=== PATIENT | female | born 1985 | race Caucasian/White ===

== ENCOUNTER 2019-08-22 12:15 | Inpatient (IN) | payer OTHER ==
[2019-08-22] MEDS ORDERED: STADOL IV PRN ×2 (13:18→14:00)
[2019-08-22] MEDS ORDERED: BRETHINE SUB-Q PRN (13:33)
[2019-08-22] MEDS ORDERED: PHENERGAN PR PRN (13:33)
[2019-08-22] MEDS ORDERED: BRETHINE IVP PRN (13:33)
--- NOTE | 2019-08-22 13:33 | History and Physical Report ---
History of Present Illness Date of examination: 08/22/19 Date of admission: 08/22/19 Chief complaint: Contractions History of present illness: 34yo at 38+2/7 weeks by LNMP 11/26/18 in labor Previous c/sectionx1, desires TOLAC Previous c/sectionx1 for FTP at 40 weeks in [facility] 09/03/19 labs: A+/antibody screen negative HB 11.1/HCt 34.4 Pap NILM Rubella immune VRDL Negative Urine culture: negative HBsAg negative HIV NR GC/chlamydia: Negative MSAFP: patient presented too late for care GCT 78 GBS positive Past History Past Surgical History: cholecystectomy, section Family/Genetic History: none Social history: no significant social history - Obstetrical History : 2 Medications and Allergies Allergies Allergy/AdvReac Type Severity Reaction Status Date / Time No Known Allergies Allergy Unverified 08/22/19 13:05 Active Meds: Active Medications Butorphanol Tartrate (Stadol) 2 mg IV Q2H PRN PRN Reason: Labor Pain Lactated Ringer's (Lactated Ringers) 1,000 mls @ 125 mls/hr IV DIRECT HENRIQUE Review of Systems All systems: negative (contractions, leaking of fluid) - Vital Signs Vital signs: Vital Signs Temp Pulse Resp BP Pulse Ox 97.8 F 63 16 134/84 98 08/22/19 12:22 08/22/19 12:22 08/22/19 12:22 08/22/19 12:22 08/22/19 12:22 Temp Pulse Resp BP Pulse Ox 97.8 F 63 16 134/84 98 08/22/19 12:22 08/22/19 12:22 08/22/19 12:22 08/22/19 12:22 08/22/19 12:22 - Physical Exam Cardiovascular: Regular rate Lungs: Positive: Clear to auscultation Abdomen: Positive: normal appearance, soft Genitourinary (Female): Positive: normal external genitalia Cervix: Positive: other (2cm/80%/-2 Soft/midposition) Deep Tendon Reflex Grade: Normal +2 - Obstetrical FHR: category 1 Results All other labs normal. Assessment and Plan IUP at 38+2/7 weeks Previous c/sectionx1, desires TOLAC P: admission Informed consent GBS prophylaxis if indicated admission labs, early epidural CFM Maternal/ well being reassuring at bedside Rafa Payan MD
[2019-08-22] MEDS ORDERED: NalbUPHINE IV PRN (14:00)
[2019-08-22] MEDS ORDERED: MINERAL OIL PO PRN (14:00)
[2019-08-22] MEDS ORDERED: LACTATED RINGERS 1,000 ML IV SCH (14:00)
[2019-08-22] MEDS: LACTATED RINGERS 1,000 ML IV SCH ×2 (14:00→15:13)
[2019-08-22] MEDS ORDERED: XYLOCAINE 2% INFILTRATI NR (14:00)
[2019-08-22] MEDS ORDERED: PITOCin/NS 30 UNIT/500ML 30 UNITS/500 ML BAG IV SCH (14:00)
[2019-08-22] MEDS ORDERED: PITOCin/NS 20 UNIT/1000ML DRIP 20 UNITS/1,000 ML BAG IV SCH (14:00)
[2019-08-22] MEDS ORDERED: ZOFRAN IV PRN (14:00)
[2019-08-22 14:46] LABS: Hematocrit 39.7 % (30.3-42.9); Hemoglobin 12.9 gm/dl (10.1-14.3); Mean Corpuscular HGB Conc 33 % (30-34); Mean Corpuscular Volume 82 fl (79-97); Platelet Count 227 K/mm3 (140-440); Red Blood Count 4.84 M/mm3 (3.65-5.03); Red Cell Distribution Width 14.4 % (13.2-15.2)
[2019-08-22] MEDS ORDERED: NALOXONE IV PRN (15:18)
--- NOTE | 2019-08-22 15:18 | Anesthesia Consultation ---
Anesthesia Consult and Med Hx Date of service: 08/22/19 - Airway Anesthetic Teeth Evaluation: Good ROM Head & Neck: Adequate Mental/Hyoid Distance: Adequate Mallampati Class: Class II Intubation Access Assessment: Probably Good - Pulmonary Exam CTA: Yes - Cardiac Exam Cardiac Exam: RRR - Pre-Operative Health Status ASA Pre-Surgery Classification: ASA2 Proposed Anesthetic Plan: Epidural - Pulmonary Hx Asthma: No COPD: No Hx Pneumonia: No - Cardiovascular System Hx Hypertension: No - Central Nervous System Hx Seizures: No Hx Psychiatric Problems: No - Endocrine Hx Renal Disease: No Hx End Stage Renal Disease: No Hx Hypothyroidism: No Hx Hyperthyroidism: No - Hematic Hx Anemia: No Hx Sickle Cell Disease: No - Other Systems Hx Alcohol Use: No
[2019-08-22] MEDS ORDERED: AMPICILLIN/NS 2 GM/100 ML 2 GM/100 ML BAG IV ONE (15:20)
[2019-08-22] MEDS: fentaNYL-BUPIV 2 MCG/ML-0.125% 200 MCG/100 ML BAG EPIDURAL SCH ×2 (15:59→23:04)
[2019-08-22] MEDS: PITOCin/NS 30 UNIT/500ML 30 UNITS/500 ML BAG IV SCH ×4 (16:04→23:48)
--- NOTE | 2019-08-22 16:19 | Progress Note ---
Subjective - Subjective Date of service: 08/22/19 Principal diagnosis: Induction of labor Interval history: Patient is comfortable after epidural Cervix 3cm/90%/-2 BBOW FHT 140 baseline, moderate variability, +ve accelerations [place]:Q2-3 minutes Oxytocin at 2mu/min Plan to continue current management keep oxytocin at 2mu/min Rafa Payan MD Objective - Vital Signs Vital Signs: Vital Signs - 12hr 08/22/19 08/22/19 08/22/19 12:22 14:42 14:47 Temperature 97.8 F Pulse Rate 63 75 86 Respiratory 16 Rate Blood Pressure 139/93 Blood Pressure 134/84 [Left] O2 Sat by Pulse 98 100 100 Oximetry 08/22/19 08/22/19 08/22/19 14:52 14:57 15:02 Temperature Pulse Rate 85 78 79 Respiratory Rate Blood Pressure Blood Pressure [Left] O2 Sat by Pulse 99 99 100 Oximetry 08/22/19 08/22/19 08/22/19 15:07 15:12 15:17 Temperature Pulse Rate 84 86 75 Respiratory Rate Blood Pressure Blood Pressure [Left] O2 Sat by Pulse 100 100 100 Oximetry 08/22/19 08/22/19 08/22/19 15:22 15:27 15:32 Temperature Pulse Rate 77 79 86 Respiratory Rate Blood Pressure Blood Pressure [Left] O2 Sat by Pulse 100 100 100 Oximetry 08/22/19 08/22/19 08/22/19 15:36 15:37 15:38 Temperature Pulse Rate 78 84 84 Respiratory Rate Blood Pressure 138/78 137/80 Blood Pressure [Left] O2 Sat by Pulse 99 Oximetry 08/22/19 08/22/19 08/22/19 15:40 15:42 15:44 Temperature Pulse Rate 100 H 120 H 123 H Respiratory Rate Blood Pressure 139/75 134/77 129/76 Blood Pressure [Left] O2 Sat by Pulse 100 Oximetry 08/22/19 08/22/19 08/22/19 15:46 15:47 15:48 Temperature Pulse Rate 160 H 167 H 148 H Respiratory Rate Blood Pressure 120/70 128/74 Blood Pressure [Left] O2 Sat by Pulse 100 Oximetry 08/22/19 08/22/19 08/22/19 15:50 15:52 15:54 Temperature Pulse Rate 146 H 111 H 109 H Respiratory Rate Blood Pressure 126/73 134/82 124/64 Blood Pressure [Left] O2 Sat by Pulse 100 Oximetry 08/22/19 08/22/19 08/22/19 15:56 15:57 15:58 Temperature Pulse Rate 110 H 89 87 Respiratory Rate Blood Pressure 119/57 120/60 Blood Pressure [Left] O2 Sat by Pulse 100 Oximetry 08/22/19 08/22/19 08/22/19 16:00 16:02 16:04 Temperature Pulse Rate 102 H 94 H 79 Respiratory Rate Blood Pressure 115/59 118/56 143/64 Blood Pressure [Left] O2 Sat by Pulse 100 Oximetry 08/22/19 08/22/19 08/22/19 16:05 16:06 16:07 Temperature 97.8 F Pulse Rate 85 107 H Respiratory Rate Blood Pressure 123/61 Blood Pressure [Left] O2 Sat by Pulse 100 Oximetry 08/22/19 08/22/19 16:08 16:12 Temperature Pulse Rate 94 H 86 Respiratory Rate Blood Pressure 127/65 Blood Pressure [Left] O2 Sat by Pulse 100 Oximetry - Labs Labs: Abnormal Labs 08/22/19 14:20 MCH 27 L Laboratory Results - last 24 hr 08/22/19 08/22/19 14:20 14:20 WBC 10.5 RBC 4.84 Hgb 12.9 Hct 39.7 MCV 82 MCH 27 L MCHC 33 RDW 14.4 Plt Count 227 Blood Type A POSITIVE Antibody Screen Negative
--- NOTE | 2019-08-22 18:22 | Progress Note ---
Subjective - Subjective Date of service: 08/22/19 Principal diagnosis: Induction of labor Interval history: Patient is comfortable after epidural Cervix 5cm/100%/-2 AROM meconium/bloody fluid with no complication FHT 140 baseline, periods of minimal to moderate variability, +ve variable deceleration noted to soraya of 120bpm lasting <30 seconds with return to baseline IUPC placed Abdomen: soft, nontender, no rebound or guarding, no suprapubic or uterine anterior wall uterine tenderness on exam. Attempted payment of FSE but not successful. Excellent tracing on external monitor at this time. Continue oxytocin at 2mu/min Continuous monitoring Maternal/ well being reassuring overall. Kevon CH Objective - Vital Signs Vital Signs: Vital Signs - 12hr 08/22/19 08/22/19 08/22/19 12:22 14:42 14:47 Temperature 97.8 F Pulse Rate 63 75 86 Respiratory 16 Rate Blood Pressure 139/93 Blood Pressure 134/84 [Left] O2 Sat by Pulse 98 100 100 Oximetry 08/22/19 08/22/19 08/22/19 14:52 14:57 15:02 Temperature Pulse Rate 85 78 79 Respiratory Rate Blood Pressure Blood Pressure [Left] O2 Sat by Pulse 99 99 100 Oximetry 08/22/19 08/22/19 08/22/19 15:07 15:12 15:17 Temperature Pulse Rate 84 86 75 Respiratory Rate Blood Pressure Blood Pressure [Left] O2 Sat by Pulse 100 100 100 Oximetry 08/22/19 08/22/19 08/22/19 15:22 15:27 15:32 Temperature Pulse Rate 77 79 86 Respiratory Rate Blood Pressure Blood Pressure [Left] O2 Sat by Pulse 100 100 100 Oximetry 08/22/19 08/22/19 08/22/19 15:36 15:37 15:38 Temperature Pulse Rate 78 84 84 Respiratory Rate Blood Pressure 138/78 137/80 Blood Pressure [Left] O2 Sat by Pulse 99 Oximetry 08/22/19 08/22/19 08/22/19 15:40 15:42 15:44 Temperature Pulse Rate 100 H 120 H 123 H Respiratory Rate Blood Pressure 139/75 134/77 129/76 Blood Pressure [Left] O2 Sat by Pulse 100 Oximetry 08/22/19 08/22/19 08/22/19 15:46 15:47 15:48 Temperature Pulse Rate 160 H 167 H 148 H Respiratory Rate Blood Pressure 120/70 128/74 Blood Pressure [Left] O2 Sat by Pulse 100 Oximetry 08/22/19 08/22/19 08/22/19 15:50 15:52 15:54 Temperature Pulse Rate 146 H 111 H 109 H Respiratory Rate Blood Pressure 126/73 134/82 124/64 Blood Pressure [Left] O2 Sat by Pulse 100 Oximetry 08/22/19 08/22/19 08/22/19 15:56 15:57 15:58 Temperature Pulse Rate 110 H 89 87 Respiratory Rate Blood Pressure 119/57 120/60 Blood Pressure [Left] O2 Sat by Pulse 100 Oximetry 08/22/19 08/22/19 08/22/19 16:00 16:02 16:04 Temperature Pulse Rate 102 H 94 H 79 Respiratory Rate Blood Pressure 115/59 118/56 143/64 Blood Pressure [Left] O2 Sat by Pulse 100 Oximetry 08/22/19 08/22/19 08/22/19 16:05 16:06 16:07 Temperature 97.8 F Pulse Rate 85 107 H Respiratory Rate Blood Pressure 123/61 Blood Pressure [Left] O2 Sat by Pulse 100 Oximetry 08/22/19 08/22/19 08/22/19 16:08 16:12 16:17 Temperature Pulse Rate 94 H 86 82 Respiratory Rate Blood Pressure 127/65 Blood Pressure [Left] O2 Sat by Pulse 100 100 Oximetry 08/22/19 08/22/19 08/22/19 16:22 16:27 16:32 Temperature Pulse Rate 83 85 88 Respiratory Rate Blood Pressure Blood Pressure [Left] O2 Sat by Pulse 100 100 100 Oximetry 08/22/19 08/22/19 08/22/19 16:37 16:40 16:42 Temperature Pulse Rate 83 82 97 H Respiratory Rate Blood Pressure 131/66 Blood Pressure [Left] O2 Sat by Pulse 100 100 Oximetry 08/22/19 08/22/19 08/22/19 16:47 16:52 16:57 Temperature Pulse Rate 88 84 97 H Respiratory Rate Blood Pressure Blood Pressure [Left] O2 Sat by Pulse 100 100 100 Oximetry 08/22/19 08/22/19 08/22/19 17:02 17:07 17:09 Temperature Pulse Rate 82 102 H 81 Respiratory Rate Blood Pressure 138/63 Blood Pressure [Left] O2 Sat by Pulse 100 100 Oximetry 08/22/19 08/22/19 08/22/19 17:12 17:17 17:22 Temperature Pulse Rate 88 84 79 Respiratory Rate Blood Pressure Blood Pressure [Left] O2 Sat by Pulse 100 100 100 Oximetry 08/22/19 08/22/19 08/22/19 17:27 17:32 17:37 Temperature Pulse Rate 92 H 90 78 Respiratory Rate Blood Pressure Blood Pressure [Left] O2 Sat by Pulse 100 100 100 Oximetry 08/22/19 08/22/19 08/22/19 17:38 17:42 17:47 Temperature Pulse Rate 87 75 86 Respiratory Rate Blood Pressure 115/62 Blood Pressure [Left] O2 Sat by Pulse 100 100 Oximetry 08/22/19 08/22/19 08/22/19 17:52 17:57 18:02 Temperature Pulse Rate 83 89 105 H Respiratory Rate Blood Pressure Blood Pressure [Left] O2 Sat by Pulse 100 100 100 Oximetry 08/22/19 08/22/19 08/22/19 18:07 18:08 18:12 Temperature Pulse Rate 102 H 93 H 81 Respiratory Rate Blood Pressure 120/60 Blood Pressure [Left] O2 Sat by Pulse 100 100 Oximetry - Labs Labs: Abnormal Labs 08/22/19 14:20 MCH 27 L Laboratory Results - last 24 hr 08/22/19 08/22/19 14:20 14:20 WBC 10.5 RBC 4.84 Hgb 12.9 Hct 39.7 MCV 82 MCH 27 L MCHC 33 RDW 14.4 Plt Count 227 Blood Type A POSITIVE Antibody Screen Negative
--- NOTE | 2019-08-22 19:27 | Progress Note ---
Subjective - Subjective Date of service: 08/22/19 Principal diagnosis: Induction of labor Interval history: Patient is comfortable after epidural. Family in the room. I was called to the room for variable decelerations. Patient in left lateral decubitus with O2 per face mask Review of tracing reveals FHT 150basline, moderate variability, +ve accelerations. Two variables with a late component noted after AROM to a soraya of 140bpm lasting less than one minute with return to baseline. Continued moderate variability. Cervical exam: 5cm/100%/-1. Good descent with valsalva. Abdominal exam benign, pelvic adequate. Plan to increase oxytocin to 4mu/min and continue to monitor maternal/ well being reassuring overall. Rafa Jennings Objective - Vital Signs Vital Signs: Vital Signs - 12hr 08/22/19 08/22/19 08/22/19 12:22 14:42 14:47 Temperature 97.8 F Pulse Rate 63 75 86 Respiratory 16 Rate Blood Pressure 139/93 Blood Pressure 134/84 [Left] O2 Sat by Pulse 98 100 100 Oximetry 08/22/19 08/22/19 08/22/19 14:52 14:57 15:02 Temperature Pulse Rate 85 78 79 Respiratory Rate Blood Pressure Blood Pressure [Left] O2 Sat by Pulse 99 99 100 Oximetry 08/22/19 08/22/19 08/22/19 15:07 15:12 15:17 Temperature Pulse Rate 84 86 75 Respiratory Rate Blood Pressure Blood Pressure [Left] O2 Sat by Pulse 100 100 100 Oximetry 08/22/19 08/22/19 08/22/19 15:22 15:27 15:32 Temperature Pulse Rate 77 79 86 Respiratory Rate Blood Pressure Blood Pressure [Left] O2 Sat by Pulse 100 100 100 Oximetry 08/22/19 08/22/19 08/22/19 15:36 15:37 15:38 Temperature Pulse Rate 78 84 84 Respiratory Rate Blood Pressure 138/78 137/80 Blood Pressure [Left] O2 Sat by Pulse 99 Oximetry 08/22/19 08/22/19 08/22/19 15:40 15:42 15:44 Temperature Pulse Rate 100 H 120 H 123 H Respiratory Rate Blood Pressure 139/75 134/77 129/76 Blood Pressure [Left] O2 Sat by Pulse 100 Oximetry 10/21/19 10/21/19 10/21/19 15:46 15:47 15:48 Temperature Pulse Rate 160 H 167 H 148 H Respiratory Rate Blood Pressure 120/70 128/74 Blood Pressure [Left] O2 Sat by Pulse 100 Oximetry 08/22/19 08/22/19 08/22/19 15:50 15:52 15:54 Temperature Pulse Rate 146 H 111 H 109 H Respiratory Rate Blood Pressure 126/73 134/82 124/64 Blood Pressure [Left] O2 Sat by Pulse 100 Oximetry 08/22/19 08/22/19 08/22/19 15:56 15:57 15:58 Temperature Pulse Rate 110 H 89 87 Respiratory Rate Blood Pressure 119/57 120/60 Blood Pressure [Left] O2 Sat by Pulse 100 Oximetry 08/22/19 08/22/19 08/22/19 16:00 16:02 16:04 Temperature Pulse Rate 102 H 94 H 79 Respiratory Rate Blood Pressure 115/59 118/56 143/64 Blood Pressure [Left] O2 Sat by Pulse 100 Oximetry 08/22/19 08/22/19 08/22/19 16:05 16:06 16:07 Temperature 97.8 F Pulse Rate 85 107 H Respiratory Rate Blood Pressure 123/61 Blood Pressure [Left] O2 Sat by Pulse 100 Oximetry 08/22/19 08/22/19 08/22/19 16:08 16:12 16:17 Temperature Pulse Rate 94 H 86 82 Respiratory Rate Blood Pressure 127/65 Blood Pressure [Left] O2 Sat by Pulse 100 100 Oximetry 08/22/19 08/22/19 08/22/19 16:22 16:27 16:32 Temperature Pulse Rate 83 85 88 Respiratory Rate Blood Pressure Blood Pressure [Left] O2 Sat by Pulse 100 100 100 Oximetry 08/22/19 08/22/19 08/22/19 16:37 16:40 16:42 Temperature Pulse Rate 83 82 97 H Respiratory Rate Blood Pressure 131/66 Blood Pressure [Left] O2 Sat by Pulse 100 100 Oximetry 08/22/19 08/22/19 08/22/19 16:47 16:52 16:57 Temperature Pulse Rate 88 84 97 H Respiratory Rate Blood Pressure Blood Pressure [Left] O2 Sat by Pulse 100 100 100 Oximetry 08/22/19 08/22/19 08/22/19 17:02 17:07 17:09 Temperature Pulse Rate 82 102 H 81 Respiratory Rate Blood Pressure 138/63 Blood Pressure [Left] O2 Sat by Pulse 100 100 Oximetry 08/22/19 08/22/19 08/22/19 17:12 17:17 17:22 Temperature Pulse Rate 88 84 79 Respiratory Rate Blood Pressure Blood Pressure [Left] O2 Sat by Pulse 100 100 100 Oximetry 08/22/19 08/22/19 08/22/19 17:27 17:32 17:37 Temperature Pulse Rate 92 H 90 78 Respiratory Rate Blood Pressure Blood Pressure [Left] O2 Sat by Pulse 100 100 100 Oximetry 08/22/19 08/22/19 08/22/19 17:38 17:42 17:47 Temperature Pulse Rate 87 75 86 Respiratory Rate Blood Pressure 115/62 Blood Pressure [Left] O2 Sat by Pulse 100 100 Oximetry 08/22/19 08/22/19 08/22/19 17:52 17:57 18:02 Temperature Pulse Rate 83 89 105 H Respiratory Rate Blood Pressure Blood Pressure [Left] O2 Sat by Pulse 100 100 100 Oximetry 08/22/19 08/22/19 08/22/19 18:07 18:08 18:12 Temperature Pulse Rate 102 H 93 H 81 Respiratory Rate Blood Pressure 120/60 Blood Pressure [Left] O2 Sat by Pulse 100 100 Oximetry 08/22/19 08/22/19 08/22/19 18:17 18:22 18:27 Temperature Pulse Rate 76 90 92 H Respiratory Rate Blood Pressure Blood Pressure [Left] O2 Sat by Pulse 100 100 100 Oximetry 08/22/19 08/22/19 08/22/19 18:32 18:37 18:42 Temperature Pulse Rate 78 82 85 Respiratory Rate Blood Pressure Blood Pressure [Left] O2 Sat by Pulse 100 100 100 Oximetry 08/22/19 08/22/19 08/22/19 18:47 18:52 18:57 Temperature Pulse Rate 75 79 82 Respiratory Rate Blood Pressure Blood Pressure [Left] O2 Sat by Pulse 100 100 100 Oximetry 08/22/19 08/22/19 08/22/19 19:02 19:07 19:12 Temperature Pulse Rate 74 74 77 Respiratory Rate Blood Pressure Blood Pressure [Left] O2 Sat by Pulse 100 100 100 Oximetry 08/22/19 08/22/19 19:13 19:17 Temperature Pulse Rate 78 86 Respiratory Rate Blood Pressure 127/70 Blood Pressure [Left] O2 Sat by Pulse 100 Oximetry - Labs Labs: Abnormal Labs 08/22/19 14:20 MCH 27 L Laboratory Results - last 24 hr 08/22/19 08/22/19 14:20 14:20 WBC 10.5 RBC 4.84 Hgb 12.9 Hct 39.7 MCV 82 MCH 27 L MCHC 33 RDW 14.4 Plt Count 227 Blood Type A POSITIVE Antibody Screen Negative
[2019-08-22] MEDS: AMPICILLIN/NS 1 GM/50 ML 1 GM/50 ML BAG IV SCH ×2 (19:29→23:50)
--- NOTE | 2019-08-22 22:24 | Progress Note ---
Subjective - Subjective Date of service: 08/22/19 Principal diagnosis: Induction of labor Interval history: exam as per nursing staff cervical exam 7cm/100%/-1 FHT 150 baseline, moderate variability +ve accelerations [place]:Q1-2 minutes Continue current management tracing category 1 CFM Maternal/ well being reassuring overall. Rafa Jennings Objective - Vital Signs Vital Signs: Vital Signs - 12hr 08/22/19 08/22/19 08/22/19 12:22 14:42 14:47 Temperature 97.8 F Pulse Rate 63 75 86 Respiratory 16 Rate Blood Pressure 139/93 Blood Pressure 134/84 [Left] O2 Sat by Pulse 98 100 100 Oximetry 08/22/19 08/22/19 08/22/19 14:52 14:57 15:02 Temperature Pulse Rate 85 78 79 Respiratory Rate Blood Pressure Blood Pressure [Left] O2 Sat by Pulse 99 99 100 Oximetry 08/22/19 08/22/19 08/22/19 15:07 15:12 15:17 Temperature Pulse Rate 84 86 75 Respiratory Rate Blood Pressure Blood Pressure [Left] O2 Sat by Pulse 100 100 100 Oximetry 08/22/19 08/22/19 08/22/19 15:22 15:27 15:32 Temperature Pulse Rate 77 79 86 Respiratory Rate Blood Pressure Blood Pressure [Left] O2 Sat by Pulse 100 100 100 Oximetry 08/22/19 08/22/19 08/22/19 15:36 15:37 15:38 Temperature Pulse Rate 78 84 84 Respiratory Rate Blood Pressure 138/78 137/80 Blood Pressure [Left] O2 Sat by Pulse 99 Oximetry 08/22/19 08/22/19 08/22/19 15:40 15:42 15:44 Temperature Pulse Rate 100 H 120 H 123 H Respiratory Rate Blood Pressure 139/75 134/77 129/76 Blood Pressure [Left] O2 Sat by Pulse 100 Oximetry 08/22/19 08/22/19 08/22/19 15:46 15:47 15:48 Temperature Pulse Rate 160 H 167 H 148 H Respiratory Rate Blood Pressure 120/70 128/74 Blood Pressure [Left] O2 Sat by Pulse 100 Oximetry 08/22/19 08/22/19 08/22/19 15:50 15:52 15:54 Temperature Pulse Rate 146 H 111 H 109 H Respiratory Rate Blood Pressure 126/73 134/82 124/64 Blood Pressure [Left] O2 Sat by Pulse 100 Oximetry 08/22/19 08/22/19 08/22/19 15:56 15:57 15:58 Temperature Pulse Rate 110 H 89 87 Respiratory Rate Blood Pressure 119/57 120/60 Blood Pressure [Left] O2 Sat by Pulse 100 Oximetry 08/22/19 08/22/19 08/22/19 16:00 16:02 16:04 Temperature Pulse Rate 102 H 94 H 79 Respiratory Rate Blood Pressure 115/59 118/56 143/64 Blood Pressure [Left] O2 Sat by Pulse 100 Oximetry 08/22/19 08/22/19 08/22/19 16:05 16:06 16:07 Temperature 97.8 F Pulse Rate 85 107 H Respiratory Rate Blood Pressure 123/61 Blood Pressure [Left] O2 Sat by Pulse 100 Oximetry 08/22/19 08/22/19 08/22/19 16:08 16:12 16:17 Temperature Pulse Rate 94 H 86 82 Respiratory Rate Blood Pressure 127/65 Blood Pressure [Left] O2 Sat by Pulse 100 100 Oximetry 08/22/19 08/22/19 08/22/19 16:22 16:27 16:32 Temperature Pulse Rate 83 85 88 Respiratory Rate Blood Pressure Blood Pressure [Left] O2 Sat by Pulse 100 100 100 Oximetry 08/22/19 08/22/19 08/22/19 16:37 16:40 16:42 Temperature Pulse Rate 83 82 97 H Respiratory Rate Blood Pressure 131/66 Blood Pressure [Left] O2 Sat by Pulse 100 100 Oximetry 08/22/19 08/22/19 08/22/19 16:47 16:52 16:57 Temperature Pulse Rate 88 84 97 H Respiratory Rate Blood Pressure Blood Pressure [Left] O2 Sat by Pulse 100 100 100 Oximetry 08/22/19 08/22/19 08/22/19 17:02 17:07 17:09 Temperature Pulse Rate 82 102 H 81 Respiratory Rate Blood Pressure 138/63 Blood Pressure [Left] O2 Sat by Pulse 100 100 Oximetry 08/22/19 08/22/19 08/22/19 17:12 17:17 17:22 Temperature Pulse Rate 88 84 79 Respiratory Rate Blood Pressure Blood Pressure [Left] O2 Sat by Pulse 100 100 100 Oximetry 08/22/19 08/22/19 08/22/19 17:27 17:32 17:37 Temperature Pulse Rate 92 H 90 78 Respiratory Rate Blood Pressure Blood Pressure [Left] O2 Sat by Pulse 100 100 100 Oximetry 08/22/19 08/22/19 08/22/19 17:38 17:42 17:47 Temperature Pulse Rate 87 75 86 Respiratory Rate Blood Pressure 115/62 Blood Pressure [Left] O2 Sat by Pulse 100 100 Oximetry 08/22/19 08/22/19 08/22/19 17:52 17:57 18:02 Temperature Pulse Rate 83 89 105 H Respiratory Rate Blood Pressure Blood Pressure [Left] O2 Sat by Pulse 100 100 100 Oximetry 08/22/19 08/22/19 08/22/19 18:07 18:08 18:12 Temperature Pulse Rate 102 H 93 H 81 Respiratory Rate Blood Pressure 120/60 Blood Pressure [Left] O2 Sat by Pulse 100 100 Oximetry 08/22/19 08/22/19 08/22/19 18:17 18:22 18:27 Temperature Pulse Rate 76 90 92 H Respiratory Rate Blood Pressure Blood Pressure [Left] O2 Sat by Pulse 100 100 100 Oximetry 08/22/19 08/22/19 08/22/19 18:32 18:37 18:42 Temperature Pulse Rate 78 82 85 Respiratory Rate Blood Pressure Blood Pressure [Left] O2 Sat by Pulse 100 100 100 Oximetry 08/22/19 08/22/19 08/22/19 18:47 18:52 18:57 Temperature Pulse Rate 75 79 82 Respiratory Rate Blood Pressure Blood Pressure [Left] O2 Sat by Pulse 100 100 100 Oximetry 08/22/19 08/22/19 08/22/19 19:02 19:07 19:12 Temperature Pulse Rate 74 74 77 Respiratory Rate Blood Pressure Blood Pressure [Left] O2 Sat by Pulse 100 100 100 Oximetry 08/22/19 08/22/19 08/22/19 19:13 19:17 19:22 Temperature Pulse Rate 78 86 81 Respiratory Rate Blood Pressure 127/70 Blood Pressure [Left] O2 Sat by Pulse 100 100 Oximetry 08/22/19 08/22/19 08/22/19 19:27 19:32 19:37 Temperature Pulse Rate 83 87 94 H Respiratory Rate Blood Pressure Blood Pressure [Left] O2 Sat by Pulse 100 100 100 Oximetry 08/22/19 08/22/19 08/22/19 19:42 19:47 19:52 Temperature Pulse Rate 80 70 82 Respiratory Rate Blood Pressure Blood Pressure [Left] O2 Sat by Pulse 100 100 100 Oximetry 08/22/19 08/22/19 08/22/19 19:57 20:02 20:07 Temperature Pulse Rate 88 81 87 Respiratory Rate Blood Pressure Blood Pressure [Left] O2 Sat by Pulse 100 100 100 Oximetry 08/22/19 08/22/19 08/22/19 20:12 20:13 20:17 Temperature Pulse Rate 86 80 87 Respiratory Rate Blood Pressure 132/77 Blood Pressure [Left] O2 Sat by Pulse 100 100 Oximetry 08/22/19 08/22/19 08/22/19 20:22 20:27 20:32 Temperature Pulse Rate 91 H 88 87 Respiratory Rate Blood Pressure Blood Pressure [Left] O2 Sat by Pulse 100 100 100 Oximetry 08/22/19 08/22/19 08/22/19 20:37 20:42 20:47 Temperature Pulse Rate 87 84 88 Respiratory Rate Blood Pressure Blood Pressure [Left] O2 Sat by Pulse 100 100 100 Oximetry 08/22/19 08/22/19 08/22/19 20:52 20:57 21:02 Temperature Pulse Rate 89 90 91 H Respiratory Rate Blood Pressure Blood Pressure [Left] O2 Sat by Pulse 100 100 100 Oximetry 08/22/19 08/22/19 08/22/19 21:07 21:12 21:13 Temperature Pulse Rate 82 83 85 Respiratory Rate Blood Pressure 122/79 Blood Pressure [Left] O2 Sat by Pulse 100 100 Oximetry 08/22/19 08/22/19 08/22/19 21:17 21:22 21:27 Temperature Pulse Rate 91 H 82 81 Respiratory Rate Blood Pressure Blood Pressure [Left] O2 Sat by Pulse 100 100 100 Oximetry 08/22/19 08/22/19 08/22/19 21:32 21:37 21:42 Temperature Pulse Rate 86 85 100 H Respiratory Rate Blood Pressure Blood Pressure [Left] O2 Sat by Pulse 100 100 100 Oximetry 08/22/19 08/22/19 08/22/19 21:47 21:52 21:57 Temperature Pulse Rate 95 H 87 88 Respiratory Rate Blood Pressure Blood Pressure [Left] O2 Sat by Pulse 100 100 100 Oximetry 08/22/19 08/22/19 08/22/19 22:02 22:07 22:12 Temperature Pulse Rate 91 H 84 86 Respiratory Rate Blood Pressure 129/80 Blood Pressure [Left] O2 Sat by Pulse 100 100 100 Oximetry 08/22/19 08/22/19 22:17 22:22 Temperature Pulse Rate 89 85 Respiratory Rate Blood Pressure Blood Pressure [Left] O2 Sat by Pulse 100 100 Oximetry - Labs Labs: Abnormal Labs 08/22/19 14:20 MCH 27 L Laboratory Results - last 24 hr 08/22/19 08/22/19 14:20 14:20 WBC 10.5 RBC 4.84 Hgb 12.9 Hct 39.7 MCV 82 MCH 27 L MCHC 33 RDW 14.4 Plt Count 227 Blood Type A POSITIVE Antibody Screen Negative
--- NOTE | 2019-08-22 23:51 | Procedure Note ---
OB Delivery Note - Delivery Date of Delivery: 08/22/19 Surgeon: HODA LORENZANA Estimated blood loss: 200cc - Vaginal Delivery presentation: vertex Delivery position: OA Intrapartum events: none Delivery induction: none Delivery monitor: none Route of delivery: Delivery placenta: spontaneous Delivery cord: 3 umbilical vessels Episiotomy: none Delivery laceration: none Anesthesia: epidural Delivery comments: I was called to the room as patient was noted to be complete with BBOW. SROM clear fluid when placed in dorsal lithotomy position. She was placed in the dorsal lithotomy position and pushed to delivery a viable male with weight 2926gms and 8,9. Position was SANAZ. No nuchal cord. Anterior shoulder delivered atraumatically. Spontaneous cry at delivery. Baby was placed on maternal abdomen with delayed cord clamping. Inspection of the vaginal, cervix and perineum revealed no lacerations. The cord was clamped after 1 minute, cut and the intact placenta delivered spontaneously. All sponge, needle and instrument counts correctx2. EBL 200ml. Mom and baby stable to . Kevon CH - Infant A at 1 minute: 8 at 5 minutes: 9 Infant Gender: Male (2926gms.)
--- NOTE | 2019-08-23 00:12 | Progress Note ---
Subjective - Subjective Date of service: 08/23/19 Principal diagnosis: Induction of labor Interval history: Patient feeling pressure Cervix 8cm,100%/-1: easily reducible, +ve 1cm caput noted on vertex FHT 150 baseline,moderate variability toco:Q2 minutes Plan to increase oxytocin to 6mu/min CFM Maternal/ well being reassuring at bedside. Rafa Jennings Objective - Vital Signs Vital Signs: Vital Signs - 12hr 08/22/19 08/22/19 08/22/19 12:22 14:42 14:47 Temperature 97.8 F Pulse Rate 63 75 86 Respiratory 16 Rate Blood Pressure 139/93 Blood Pressure 134/84 [Left] O2 Sat by Pulse 98 100 100 Oximetry 08/22/19 08/22/19 08/22/19 14:52 14:57 15:02 Temperature Pulse Rate 85 78 79 Respiratory Rate Blood Pressure Blood Pressure [Left] O2 Sat by Pulse 99 99 100 Oximetry 08/22/19 08/22/19 08/22/19 15:07 15:12 15:17 Temperature Pulse Rate 84 86 75 Respiratory Rate Blood Pressure Blood Pressure [Left] O2 Sat by Pulse 100 100 100 Oximetry 08/22/19 08/22/19 08/22/19 15:22 15:27 15:32 Temperature Pulse Rate 77 79 86 Respiratory Rate Blood Pressure Blood Pressure [Left] O2 Sat by Pulse 100 100 100 Oximetry 08/22/19 08/22/19 08/22/19 15:36 15:37 15:38 Temperature Pulse Rate 78 84 84 Respiratory Rate Blood Pressure 138/78 137/80 Blood Pressure [Left] O2 Sat by Pulse 99 Oximetry 08/22/19 08/22/19 08/22/19 15:40 15:42 15:44 Temperature Pulse Rate 100 H 120 H 123 H Respiratory Rate Blood Pressure 139/75 134/77 129/76 Blood Pressure [Left] O2 Sat by Pulse 100 Oximetry 08/22/19 08/22/19 08/22/19 15:46 15:47 15:48 Temperature Pulse Rate 160 H 167 H 148 H Respiratory Rate Blood Pressure 120/70 128/74 Blood Pressure [Left] O2 Sat by Pulse 100 Oximetry 08/22/19 08/22/19 08/22/19 15:50 15:52 15:54 Temperature Pulse Rate 146 H 111 H 109 H Respiratory Rate Blood Pressure 126/73 134/82 124/64 Blood Pressure [Left] O2 Sat by Pulse 100 Oximetry 08/22/19 08/22/19 08/22/19 15:56 15:57 15:58 Temperature Pulse Rate 110 H 89 87 Respiratory Rate Blood Pressure 119/57 120/60 Blood Pressure [Left] O2 Sat by Pulse 100 Oximetry 08/22/19 08/22/19 08/22/19 16:00 16:02 16:04 Temperature Pulse Rate 102 H 94 H 79 Respiratory Rate Blood Pressure 115/59 118/56 143/64 Blood Pressure [Left] O2 Sat by Pulse 100 Oximetry 08/22/19 08/22/19 08/22/19 16:05 16:06 16:07 Temperature 97.8 F Pulse Rate 85 107 H Respiratory Rate Blood Pressure 123/61 Blood Pressure [Left] O2 Sat by Pulse 100 Oximetry 08/22/19 08/22/19 08/22/19 16:08 16:12 16:17 Temperature Pulse Rate 94 H 86 82 Respiratory Rate Blood Pressure 127/65 Blood Pressure [Left] O2 Sat by Pulse 100 100 Oximetry 08/22/19 08/22/19 08/22/19 16:22 16:27 16:32 Temperature Pulse Rate 83 85 88 Respiratory Rate Blood Pressure Blood Pressure [Left] O2 Sat by Pulse 100 100 100 Oximetry 08/22/19 08/22/19 08/22/19 16:37 16:40 16:42 Temperature Pulse Rate 83 82 97 H Respiratory Rate Blood Pressure 131/66 Blood Pressure [Left] O2 Sat by Pulse 100 100 Oximetry 08/22/19 08/22/19 08/22/19 16:47 16:52 16:57 Temperature Pulse Rate 88 84 97 H Respiratory Rate Blood Pressure Blood Pressure [Left] O2 Sat by Pulse 100 100 100 Oximetry 08/22/19 08/22/19 08/22/19 17:02 17:07 17:09 Temperature Pulse Rate 82 102 H 81 Respiratory Rate Blood Pressure 138/63 Blood Pressure [Left] O2 Sat by Pulse 100 100 Oximetry 08/22/19 08/22/19 08/22/19 17:12 17:17 17:22 Temperature Pulse Rate 88 84 79 Respiratory Rate Blood Pressure Blood Pressure [Left] O2 Sat by Pulse 100 100 100 Oximetry 10/21/19 10/21/19 10/21/19 17:27 17:32 17:37 Temperature Pulse Rate 92 H 90 78 Respiratory Rate Blood Pressure Blood Pressure [Left] O2 Sat by Pulse 100 100 100 Oximetry 08/22/19 08/22/19 08/22/19 17:38 17:42 17:47 Temperature Pulse Rate 87 75 86 Respiratory Rate Blood Pressure 115/62 Blood Pressure [Left] O2 Sat by Pulse 100 100 Oximetry 08/22/19 08/22/19 08/22/19 17:52 17:57 18:02 Temperature Pulse Rate 83 89 105 H Respiratory Rate Blood Pressure Blood Pressure [Left] O2 Sat by Pulse 100 100 100 Oximetry 08/22/19 08/22/19 08/22/19 18:07 18:08 18:12 Temperature Pulse Rate 102 H 93 H 81 Respiratory Rate Blood Pressure 120/60 Blood Pressure [Left] O2 Sat by Pulse 100 100 Oximetry 08/22/19 08/22/19 08/22/19 18:17 18:22 18:27 Temperature Pulse Rate 76 90 92 H Respiratory Rate Blood Pressure Blood Pressure [Left] O2 Sat by Pulse 100 100 100 Oximetry 08/22/19 08/22/19 08/22/19 18:32 18:37 18:42 Temperature Pulse Rate 78 82 85 Respiratory Rate Blood Pressure Blood Pressure [Left] O2 Sat by Pulse 100 100 100 Oximetry 08/22/19 08/22/19 08/22/19 18:47 18:52 18:57 Temperature Pulse Rate 75 79 82 Respiratory Rate Blood Pressure Blood Pressure [Left] O2 Sat by Pulse 100 100 100 Oximetry 08/22/19 08/22/19 08/22/19 19:02 19:07 19:12 Temperature Pulse Rate 74 74 77 Respiratory Rate Blood Pressure Blood Pressure [Left] O2 Sat by Pulse 100 100 100 Oximetry 08/22/19 08/22/19 08/22/19 19:13 19:17 19:22 Temperature Pulse Rate 78 86 81 Respiratory Rate Blood Pressure 127/70 Blood Pressure [Left] O2 Sat by Pulse 100 100 Oximetry 08/22/19 08/22/19 08/22/19 19:27 19:32 19:37 Temperature Pulse Rate 83 87 94 H Respiratory Rate Blood Pressure Blood Pressure [Left] O2 Sat by Pulse 100 100 100 Oximetry 08/22/19 08/22/19 08/22/19 19:42 19:47 19:52 Temperature Pulse Rate 80 70 82 Respiratory Rate Blood Pressure Blood Pressure [Left] O2 Sat by Pulse 100 100 100 Oximetry 08/22/19 08/22/19 08/22/19 19:57 20:02 20:07 Temperature Pulse Rate 88 81 87 Respiratory Rate Blood Pressure Blood Pressure [Left] O2 Sat by Pulse 100 100 100 Oximetry 08/22/19 08/22/19 08/22/19 20:12 20:13 20:17 Temperature Pulse Rate 86 80 87 Respiratory Rate Blood Pressure 132/77 Blood Pressure [Left] O2 Sat by Pulse 100 100 Oximetry 08/22/19 08/22/19 08/22/19 20:22 20:27 20:32 Temperature Pulse Rate 91 H 88 87 Respiratory Rate Blood Pressure Blood Pressure [Left] O2 Sat by Pulse 100 100 100 Oximetry 08/22/19 08/22/19 08/22/19 20:37 20:42 20:47 Temperature Pulse Rate 87 84 88 Respiratory Rate Blood Pressure Blood Pressure [Left] O2 Sat by Pulse 100 100 100 Oximetry 08/22/19 08/22/19 08/22/19 20:52 20:57 21:02 Temperature Pulse Rate 89 90 91 H Respiratory Rate Blood Pressure Blood Pressure [Left] O2 Sat by Pulse 100 100 100 Oximetry 08/22/19 08/22/19 08/22/19 21:07 21:12 21:13 Temperature Pulse Rate 82 83 85 Respiratory Rate Blood Pressure 122/79 Blood Pressure [Left] O2 Sat by Pulse 100 100 Oximetry 08/22/19 08/22/19 08/22/19 21:17 21:22 21:27 Temperature Pulse Rate 91 H 82 81 Respiratory Rate Blood Pressure Blood Pressure [Left] O2 Sat by Pulse 100 100 100 Oximetry 08/22/19 08/22/19 08/22/19 21:32 21:37 21:42 Temperature Pulse Rate 86 85 100 H Respiratory Rate Blood Pressure Blood Pressure [Left] O2 Sat by Pulse 100 100 100 Oximetry 08/22/19 08/22/19 08/22/19 21:47 21:52 21:57 Temperature Pulse Rate 95 H 87 88 Respiratory Rate Blood Pressure Blood Pressure [Left] O2 Sat by Pulse 100 100 100 Oximetry 08/22/19 08/22/19 08/22/19 22:02 22:07 22:12 Temperature Pulse Rate 91 H 84 86 Respiratory Rate Blood Pressure 129/80 Blood Pressure [Left] O2 Sat by Pulse 100 100 100 Oximetry 08/22/19 08/22/19 08/22/19 22:17 22:22 22:27 Temperature Pulse Rate 89 85 88 Respiratory Rate Blood Pressure Blood Pressure [Left] O2 Sat by Pulse 100 100 100 Oximetry 08/22/19 08/22/19 08/22/19 22:32 22:37 22:42 Temperature Pulse Rate 92 H 87 84 Respiratory Rate Blood Pressure Blood Pressure [Left] O2 Sat by Pulse 100 100 100 Oximetry 08/22/19 08/22/19 08/22/19 22:47 22:52 22:57 Temperature Pulse Rate 88 92 H 84 Respiratory Rate Blood Pressure Blood Pressure [Left] O2 Sat by Pulse 100 100 100 Oximetry 08/22/19 08/22/19 08/22/19 23:02 23:07 23:12 Temperature Pulse Rate 89 87 83 Respiratory Rate Blood Pressure 134/82 Blood Pressure [Left] O2 Sat by Pulse 100 100 100 Oximetry 08/22/19 08/22/19 08/22/19 23:17 23:22 23:27 Temperature Pulse Rate 95 H 74 78 Respiratory Rate Blood Pressure Blood Pressure [Left] O2 Sat by Pulse 100 100 100 Oximetry 08/22/19 08/22/19 08/22/19 23:32 23:37 23:42 Temperature Pulse Rate 82 84 82 Respiratory Rate Blood Pressure Blood Pressure [Left] O2 Sat by Pulse 100 100 100 Oximetry 08/22/19 08/22/19 08/22/19 23:47 23:52 23:57 Temperature Pulse Rate 121 H 85 92 H Respiratory Rate Blood Pressure Blood Pressure [Left] O2 Sat by Pulse 100 100 100 Oximetry 08/23/19 08/23/19 00:02 00:07 Temperature Pulse Rate 84 73 Respiratory Rate Blood Pressure Blood Pressure [Left] O2 Sat by Pulse 100 100 Oximetry - Labs Labs: Abnormal Labs 08/22/19 14:20 MCH 27 L Laboratory Results - last 24 hr 08/22/19 08/22/19 14:20 14:20 WBC 10.5 RBC 4.84 Hgb 12.9 Hct 39.7 MCV 82 MCH 27 L MCHC 33 RDW 14.4 Plt Count 227 Blood Type A POSITIVE Antibody Screen Negative
[2019-08-23] MEDS: PITOCin/NS 30 UNIT/500ML 30 UNITS/500 ML BAG IV SCH (00:34)
--- NOTE | 2019-08-23 01:18 | Progress Note ---
Subjective - Subjective Date of service: 08/23/19 Principal diagnosis: Induction of labor Interval history: Patient feeling urge to push Cervix 9cm/100%/-1 +ve caput FHT 150 baseline, moderate variability +ve accelerations [place]:Q2 minutes plan to decrease epidural to improve urge to push Maternal/ well being reassuring at bedyasmin Jennings Objective - Vital Signs Vital Signs: Vital Signs - 12hr 08/22/19 08/22/19 08/22/19 14:42 14:47 14:52 Temperature Pulse Rate 75 86 85 Blood Pressure 139/93 O2 Sat by Pulse 100 100 99 Oximetry 08/22/19 08/22/19 08/22/19 14:57 15:02 15:07 Temperature Pulse Rate 78 79 84 Blood Pressure O2 Sat by Pulse 99 100 100 Oximetry 08/22/19 08/22/19 08/22/19 15:12 15:17 15:22 Temperature Pulse Rate 86 75 77 Blood Pressure O2 Sat by Pulse 100 100 100 Oximetry 08/22/19 08/22/19 08/22/19 15:27 15:32 15:36 Temperature Pulse Rate 79 86 78 Blood Pressure 138/78 O2 Sat by Pulse 100 100 Oximetry 08/22/19 08/22/19 08/22/19 15:37 15:38 15:40 Temperature Pulse Rate 84 84 100 H Blood Pressure 137/80 139/75 O2 Sat by Pulse 99 Oximetry 08/22/19 08/22/19 08/22/19 15:42 15:44 15:46 Temperature Pulse Rate 120 H 123 H 160 H Blood Pressure 134/77 129/76 120/70 O2 Sat by Pulse 100 Oximetry 08/22/19 08/22/19 08/22/19 15:47 15:48 15:50 Temperature Pulse Rate 167 H 148 H 146 H Blood Pressure 128/74 126/73 O2 Sat by Pulse 100 Oximetry 08/22/19 08/22/19 08/22/19 15:52 15:54 15:56 Temperature Pulse Rate 111 H 109 H 110 H Blood Pressure 134/82 124/64 119/57 O2 Sat by Pulse 100 Oximetry 08/22/19 08/22/19 08/22/19 15:57 15:58 16:00 Temperature Pulse Rate 89 87 102 H Blood Pressure 120/60 115/59 O2 Sat by Pulse 100 Oximetry 08/22/19 08/22/19 08/22/19 16:02 16:04 16:05 Temperature 97.8 F Pulse Rate 94 H 79 Blood Pressure 118/56 143/64 O2 Sat by Pulse 100 Oximetry 08/22/19 08/22/19 08/22/19 16:06 16:07 16:08 Temperature Pulse Rate 85 107 H 94 H Blood Pressure 123/61 127/65 O2 Sat by Pulse 100 Oximetry 08/22/19 08/22/19 08/22/19 16:12 16:17 16:22 Temperature Pulse Rate 86 82 83 Blood Pressure O2 Sat by Pulse 100 100 100 Oximetry 08/22/19 08/22/19 08/22/19 16:27 16:32 16:37 Temperature Pulse Rate 85 88 83 Blood Pressure O2 Sat by Pulse 100 100 100 Oximetry 08/22/19 08/22/19 08/22/19 16:40 16:42 16:47 Temperature Pulse Rate 82 97 H 88 Blood Pressure 131/66 O2 Sat by Pulse 100 100 Oximetry 08/22/19 08/22/19 08/22/19 16:52 16:57 17:02 Temperature Pulse Rate 84 97 H 82 Blood Pressure O2 Sat by Pulse 100 100 100 Oximetry 08/22/19 08/22/19 08/22/19 17:07 17:09 17:12 Temperature Pulse Rate 102 H 81 88 Blood Pressure 138/63 O2 Sat by Pulse 100 100 Oximetry 08/22/19 08/22/19 08/22/19 17:17 17:22 17:27 Temperature Pulse Rate 84 79 92 H Blood Pressure O2 Sat by Pulse 100 100 100 Oximetry 08/22/19 08/22/19 08/22/19 17:32 17:37 17:38 Temperature Pulse Rate 90 78 87 Blood Pressure 115/62 O2 Sat by Pulse 100 100 Oximetry 08/22/19 08/22/19 08/22/19 17:42 17:47 17:52 Temperature Pulse Rate 75 86 83 Blood Pressure O2 Sat by Pulse 100 100 100 Oximetry 08/22/19 08/22/19 08/22/19 17:57 18:02 18:07 Temperature Pulse Rate 89 105 H 102 H Blood Pressure O2 Sat by Pulse 100 100 100 Oximetry 08/22/19 08/22/19 08/22/19 18:08 18:12 18:17 Temperature Pulse Rate 93 H 81 76 Blood Pressure 120/60 O2 Sat by Pulse 100 100 Oximetry 08/22/19 08/22/19 08/22/19 18:22 18:27 18:32 Temperature Pulse Rate 90 92 H 78 Blood Pressure O2 Sat by Pulse 100 100 100 Oximetry 08/22/19 08/22/19 08/22/19 18:37 18:42 18:47 Temperature Pulse Rate 82 85 75 Blood Pressure O2 Sat by Pulse 100 100 100 Oximetry 08/22/19 08/22/19 08/22/19 18:52 18:57 19:02 Temperature Pulse Rate 79 82 74 Blood Pressure O2 Sat by Pulse 100 100 100 Oximetry 08/22/19 08/22/19 08/22/19 19:07 19:12 19:13 Temperature Pulse Rate 74 77 78 Blood Pressure 127/70 O2 Sat by Pulse 100 100 Oximetry 08/22/19 08/22/19 08/22/19 19:17 19:22 19:27 Temperature Pulse Rate 86 81 83 Blood Pressure O2 Sat by Pulse 100 100 100 Oximetry 08/22/19 08/22/19 08/22/19 19:32 19:37 19:42 Temperature Pulse Rate 87 94 H 80 Blood Pressure O2 Sat by Pulse 100 100 100 Oximetry 08/22/19 08/22/19 08/22/19 19:47 19:52 19:57 Temperature Pulse Rate 70 82 88 Blood Pressure O2 Sat by Pulse 100 100 100 Oximetry 08/22/19 08/22/19 08/22/19 20:02 20:07 20:12 Temperature Pulse Rate 81 87 86 Blood Pressure O2 Sat by Pulse 100 100 100 Oximetry 08/22/19 08/22/19 08/22/19 20:13 20:17 20:22 Temperature Pulse Rate 80 87 91 H Blood Pressure 132/77 O2 Sat by Pulse 100 100 Oximetry 08/22/19 08/22/19 08/22/19 20:27 20:32 20:37 Temperature Pulse Rate 88 87 87 Blood Pressure O2 Sat by Pulse 100 100 100 Oximetry 08/22/19 08/22/19 08/22/19 20:42 20:47 20:52 Temperature Pulse Rate 84 88 89 Blood Pressure O2 Sat by Pulse 100 100 100 Oximetry 08/22/19 08/22/19 08/22/19 20:57 21:02 21:07 Temperature Pulse Rate 90 91 H 82 Blood Pressure O2 Sat by Pulse 100 100 100 Oximetry 08/22/19 08/22/19 08/22/19 21:12 21:13 21:17 Temperature Pulse Rate 83 85 91 H Blood Pressure 122/79 O2 Sat by Pulse 100 100 Oximetry 08/22/19 08/22/19 08/22/19 21:22 21:27 21:32 Temperature Pulse Rate 82 81 86 Blood Pressure O2 Sat by Pulse 100 100 100 Oximetry 08/22/19 08/22/19 08/22/19 21:37 21:42 21:47 Temperature Pulse Rate 85 100 H 95 H Blood Pressure O2 Sat by Pulse 100 100 100 Oximetry 08/22/19 08/22/19 08/22/19 21:52 21:57 22:02 Temperature Pulse Rate 87 88 91 H Blood Pressure O2 Sat by Pulse 100 100 100 Oximetry 08/22/19 08/22/19 08/22/19 22:07 22:12 22:17 Temperature Pulse Rate 84 86 89 Blood Pressure 129/80 O2 Sat by Pulse 100 100 100 Oximetry 08/22/19 08/22/19 08/22/19 22:22 22:27 22:32 Temperature Pulse Rate 85 88 92 H Blood Pressure O2 Sat by Pulse 100 100 100 Oximetry 08/22/19 08/22/19 08/22/19 22:37 22:42 22:47 Temperature Pulse Rate 87 84 88 Blood Pressure O2 Sat by Pulse 100 100 100 Oximetry 08/22/19 08/22/19 08/22/19 22:52 22:57 23:02 Temperature Pulse Rate 92 H 84 89 Blood Pressure O2 Sat by Pulse 100 100 100 Oximetry 08/22/19 08/22/19 08/22/19 23:07 23:12 23:17 Temperature Pulse Rate 87 83 95 H Blood Pressure 134/82 O2 Sat by Pulse 100 100 100 Oximetry 08/22/19 08/22/19 08/22/19 23:22 23:27 23:32 Temperature Pulse Rate 74 78 82 Blood Pressure O2 Sat by Pulse 100 100 100 Oximetry 08/22/19 08/22/19 08/22/19 23:37 23:42 23:47 Temperature Pulse Rate 84 82 121 H Blood Pressure O2 Sat by Pulse 100 100 100 Oximetry 08/22/19 08/22/19 08/23/19 23:52 23:57 00:02 Temperature Pulse Rate 85 92 H 84 Blood Pressure O2 Sat by Pulse 100 100 100 Oximetry 08/23/19 08/23/19 08/23/19 00:07 00:12 00:17 Temperature Pulse Rate 73 69 91 H Blood Pressure 128/64 O2 Sat by Pulse 100 100 100 Oximetry 08/23/19 08/23/19 08/23/19 00:22 00:27 00:32 Temperature Pulse Rate 76 69 70 Blood Pressure O2 Sat by Pulse 100 100 100 Oximetry 08/23/19 08/23/19 08/23/19 00:37 00:42 00:47 Temperature Pulse Rate 74 76 88 Blood Pressure O2 Sat by Pulse 100 100 100 Oximetry 08/23/19 08/23/19 08/23/19 00:52 00:57 01:02 Temperature Pulse Rate 74 84 89 Blood Pressure O2 Sat by Pulse 100 100 100 Oximetry 08/23/19 08/23/19 01:07 01:12 Temperature Pulse Rate 131 H 106 H Blood Pressure 128/88 O2 Sat by Pulse 100 100 Oximetry - Labs Labs: Abnormal Labs 08/22/19 14:20 MCH 27 L Laboratory Results - last 24 hr 08/22/19 08/22/19 14:20 14:20 WBC 10.5 RBC 4.84 Hgb 12.9 Hct 39.7 MCV 82 MCH 27 L MCHC 33 RDW 14.4 Plt Count 227 Blood Type A POSITIVE Antibody Screen Negative
--- NOTE | 2019-08-23 02:11 | Progress Note ---
Subjective - Subjective Date of service: 08/23/19 Principal diagnosis: Induction of labor Interval history: Patient feeling increased pressure FHT 150 baseline, moderate variability, occasional variables, early component to soraya 120bpm lasting less than onemonute with return to baseline [place]: Q1-2 minutes Cervix complete/100%/0 station Continue current protocol CFM Oxytocin at 6mu/min Maternal/ well being reassuring overall. Rafa Jennings Patient reports: movement normal Objective - Vital Signs Vital Signs: Vital Signs - 12hr 08/22/19 08/22/19 08/22/19 14:42 14:47 14:52 Temperature Pulse Rate 75 86 85 Blood Pressure 139/93 O2 Sat by Pulse 100 100 99 Oximetry 08/22/19 08/22/19 08/22/19 14:57 15:02 15:07 Temperature Pulse Rate 78 79 84 Blood Pressure O2 Sat by Pulse 99 100 100 Oximetry 08/22/19 08/22/19 08/22/19 15:12 15:17 15:22 Temperature Pulse Rate 86 75 77 Blood Pressure O2 Sat by Pulse 100 100 100 Oximetry 08/22/19 08/22/19 08/22/19 15:27 15:32 15:36 Temperature Pulse Rate 79 86 78 Blood Pressure 138/78 O2 Sat by Pulse 100 100 Oximetry 08/22/19 08/22/19 08/22/19 15:37 15:38 15:40 Temperature Pulse Rate 84 84 100 H Blood Pressure 137/80 139/75 O2 Sat by Pulse 99 Oximetry 08/22/19 08/22/19 08/22/19 15:42 15:44 15:46 Temperature Pulse Rate 120 H 123 H 160 H Blood Pressure 134/77 129/76 120/70 O2 Sat by Pulse 100 Oximetry 08/22/19 08/22/19 08/22/19 15:47 15:48 15:50 Temperature Pulse Rate 167 H 148 H 146 H Blood Pressure 128/74 126/73 O2 Sat by Pulse 100 Oximetry 08/22/19 08/22/19 08/22/19 15:52 15:54 15:56 Temperature Pulse Rate 111 H 109 H 110 H Blood Pressure 134/82 124/64 119/57 O2 Sat by Pulse 100 Oximetry 08/22/19 08/22/19 08/22/19 15:57 15:58 16:00 Temperature Pulse Rate 89 87 102 H Blood Pressure 120/60 115/59 O2 Sat by Pulse 100 Oximetry 08/22/19 08/22/19 08/22/19 16:02 16:04 16:05 Temperature 97.8 F Pulse Rate 94 H 79 Blood Pressure 118/56 143/64 O2 Sat by Pulse 100 Oximetry 08/22/19 08/22/19 08/22/19 16:06 16:07 16:08 Temperature Pulse Rate 85 107 H 94 H Blood Pressure 123/61 127/65 O2 Sat by Pulse 100 Oximetry 08/22/19 08/22/19 08/22/19 16:12 16:17 16:22 Temperature Pulse Rate 86 82 83 Blood Pressure O2 Sat by Pulse 100 100 100 Oximetry 08/22/19 08/22/19 08/22/19 16:27 16:32 16:37 Temperature Pulse Rate 85 88 83 Blood Pressure O2 Sat by Pulse 100 100 100 Oximetry 08/22/19 08/22/19 08/22/19 16:40 16:42 16:47 Temperature Pulse Rate 82 97 H 88 Blood Pressure 131/66 O2 Sat by Pulse 100 100 Oximetry 08/22/19 08/22/19 08/22/19 16:52 16:57 17:02 Temperature Pulse Rate 84 97 H 82 Blood Pressure O2 Sat by Pulse 100 100 100 Oximetry 08/22/19 08/22/19 08/22/19 17:07 17:09 17:12 Temperature Pulse Rate 102 H 81 88 Blood Pressure 138/63 O2 Sat by Pulse 100 100 Oximetry 08/22/19 08/22/19 08/22/19 17:17 17:22 17:27 Temperature Pulse Rate 84 79 92 H Blood Pressure O2 Sat by Pulse 100 100 100 Oximetry 08/22/19 08/22/19 08/22/19 17:32 17:37 17:38 Temperature Pulse Rate 90 78 87 Blood Pressure 115/62 O2 Sat by Pulse 100 100 Oximetry 08/22/19 08/22/19 08/22/19 17:42 17:47 17:52 Temperature Pulse Rate 75 86 83 Blood Pressure O2 Sat by Pulse 100 100 100 Oximetry 08/22/19 08/22/19 08/22/19 17:57 18:02 18:07 Temperature Pulse Rate 89 105 H 102 H Blood Pressure O2 Sat by Pulse 100 100 100 Oximetry 08/22/19 08/22/19 08/22/19 18:08 18:12 18:17 Temperature Pulse Rate 93 H 81 76 Blood Pressure 120/60 O2 Sat by Pulse 100 100 Oximetry 08/22/19 08/22/19 08/22/19 18:22 18:27 18:32 Temperature Pulse Rate 90 92 H 78 Blood Pressure O2 Sat by Pulse 100 100 100 Oximetry 08/22/19 08/22/19 08/22/19 18:37 18:42 18:47 Temperature Pulse Rate 82 85 75 Blood Pressure O2 Sat by Pulse 100 100 100 Oximetry 08/22/19 08/22/19 08/22/19 18:52 18:57 19:02 Temperature Pulse Rate 79 82 74 Blood Pressure O2 Sat by Pulse 100 100 100 Oximetry 08/22/19 08/22/19 08/22/19 19:07 19:12 19:13 Temperature Pulse Rate 74 77 78 Blood Pressure 127/70 O2 Sat by Pulse 100 100 Oximetry 08/22/19 08/22/19 08/22/19 19:17 19:22 19:27 Temperature Pulse Rate 86 81 83 Blood Pressure O2 Sat by Pulse 100 100 100 Oximetry 08/22/19 08/22/19 08/22/19 19:32 19:37 19:42 Temperature Pulse Rate 87 94 H 80 Blood Pressure O2 Sat by Pulse 100 100 100 Oximetry 08/22/19 08/22/19 08/22/19 19:47 19:52 19:57 Temperature Pulse Rate 70 82 88 Blood Pressure O2 Sat by Pulse 100 100 100 Oximetry 08/22/19 08/22/19 08/22/19 20:02 20:07 20:12 Temperature Pulse Rate 81 87 86 Blood Pressure O2 Sat by Pulse 100 100 100 Oximetry 08/22/19 08/22/19 08/22/19 20:13 20:17 20:22 Temperature Pulse Rate 80 87 91 H Blood Pressure 132/77 O2 Sat by Pulse 100 100 Oximetry 08/22/19 08/22/19 08/22/19 20:27 20:32 20:37 Temperature Pulse Rate 88 87 87 Blood Pressure O2 Sat by Pulse 100 100 100 Oximetry 08/22/19 08/22/19 08/22/19 20:42 20:47 20:52 Temperature Pulse Rate 84 88 89 Blood Pressure O2 Sat by Pulse 100 100 100 Oximetry 08/22/19 08/22/19 08/22/19 20:57 21:02 21:07 Temperature Pulse Rate 90 91 H 82 Blood Pressure O2 Sat by Pulse 100 100 100 Oximetry 08/22/19 08/22/19 08/22/19 21:12 21:13 21:17 Temperature Pulse Rate 83 85 91 H Blood Pressure 122/79 O2 Sat by Pulse 100 100 Oximetry 08/22/19 08/22/19 08/22/19 21:22 21:27 21:32 Temperature Pulse Rate 82 81 86 Blood Pressure O2 Sat by Pulse 100 100 100 Oximetry 08/22/19 08/22/19 08/22/19 21:37 21:42 21:47 Temperature Pulse Rate 85 100 H 95 H Blood Pressure O2 Sat by Pulse 100 100 100 Oximetry 08/22/19 08/22/19 08/22/19 21:52 21:57 22:02 Temperature Pulse Rate 87 88 91 H Blood Pressure O2 Sat by Pulse 100 100 100 Oximetry 08/22/19 08/22/19 08/22/19 22:07 22:12 22:17 Temperature Pulse Rate 84 86 89 Blood Pressure 129/80 O2 Sat by Pulse 100 100 100 Oximetry 08/22/19 08/22/19 08/22/19 22:22 22:27 22:32 Temperature Pulse Rate 85 88 92 H Blood Pressure O2 Sat by Pulse 100 100 100 Oximetry 08/22/19 08/22/19 08/22/19 22:37 22:42 22:47 Temperature Pulse Rate 87 84 88 Blood Pressure O2 Sat by Pulse 100 100 100 Oximetry 08/22/19 08/22/19 08/22/19 22:52 22:57 23:02 Temperature Pulse Rate 92 H 84 89 Blood Pressure O2 Sat by Pulse 100 100 100 Oximetry 08/22/19 08/22/19 08/22/19 23:07 23:12 23:17 Temperature Pulse Rate 87 83 95 H Blood Pressure 134/82 O2 Sat by Pulse 100 100 100 Oximetry 08/22/19 08/22/19 08/22/19 23:22 23:27 23:32 Temperature Pulse Rate 74 78 82 Blood Pressure O2 Sat by Pulse 100 100 100 Oximetry 08/22/19 08/22/19 08/22/19 23:37 23:42 23:47 Temperature Pulse Rate 84 82 121 H Blood Pressure O2 Sat by Pulse 100 100 100 Oximetry 08/22/19 08/22/19 08/23/19 23:52 23:57 00:02 Temperature Pulse Rate 85 92 H 84 Blood Pressure O2 Sat by Pulse 100 100 100 Oximetry 08/23/19 08/23/19 08/23/19 00:07 00:12 00:17 Temperature Pulse Rate 73 69 91 H Blood Pressure 128/64 O2 Sat by Pulse 100 100 100 Oximetry 08/23/19 08/23/19 08/23/19 00:22 00:27 00:32 Temperature Pulse Rate 76 69 70 Blood Pressure O2 Sat by Pulse 100 100 100 Oximetry 08/23/19 08/23/19 08/23/19 00:37 00:42 00:47 Temperature Pulse Rate 74 76 88 Blood Pressure O2 Sat by Pulse 100 100 100 Oximetry 08/23/19 08/23/19 08/23/19 00:52 00:57 01:02 Temperature Pulse Rate 74 84 89 Blood Pressure O2 Sat by Pulse 100 100 100 Oximetry 08/23/19 08/23/19 08/23/19 01:07 01:12 01:17 Temperature Pulse Rate 131 H 106 H 113 H Blood Pressure 128/88 O2 Sat by Pulse 100 100 100 Oximetry 08/23/19 08/23/19 08/23/19 01:22 01:27 01:32 Temperature Pulse Rate 107 H 99 H 89 Blood Pressure O2 Sat by Pulse 100 100 100 Oximetry 08/23/19 08/23/19 08/23/19 01:37 01:42 01:47 Temperature Pulse Rate 100 H 103 H 113 H Blood Pressure O2 Sat by Pulse 100 100 100 Oximetry 08/23/19 08/23/19 08/23/19 01:52 01:57 02:02 Temperature Pulse Rate 114 H 98 H 107 H Blood Pressure O2 Sat by Pulse 100 100 100 Oximetry - Labs Labs: Abnormal Labs 08/22/19 14:20 MCH 27 L Laboratory Results - last 24 hr 08/22/19 08/22/19 14:20 14:20 WBC 10.5 RBC 4.84 Hgb 12.9 Hct 39.7 MCV 82 MCH 27 L MCHC 33 RDW 14.4 Plt Count 227 Blood Type A POSITIVE Antibody Screen Negative
--- NOTE | 2019-08-23 02:37 | Progress Note ---
Subjective - Subjective Date of service: 08/23/19 Principal diagnosis: Induction of labor Interval history: Change in baseline to 160bpm, moderate variability Cervix complete/0 station, +ve caput, no descent with pushing [employer]: Q1-2 minutes Plan for urgent c/section indication: failed TOLAC, arrest of descent Informed consent obtained NPO operations administrative assistant to OR for procedure Rafa Jennings Patient reports: movement normal Objective - Vital Signs Vital Signs: Vital Signs - 12hr 08/22/19 08/22/19 08/22/19 14:42 14:47 14:52 Temperature Pulse Rate 75 86 85 Blood Pressure 139/93 O2 Sat by Pulse 100 100 99 Oximetry 08/22/19 08/22/19 08/22/19 14:57 15:02 15:07 Temperature Pulse Rate 78 79 84 Blood Pressure O2 Sat by Pulse 99 100 100 Oximetry 08/22/19 08/22/19 08/22/19 15:12 15:17 15:22 Temperature Pulse Rate 86 75 77 Blood Pressure O2 Sat by Pulse 100 100 100 Oximetry 08/22/19 08/22/19 08/22/19 15:27 15:32 15:36 Temperature Pulse Rate 79 86 78 Blood Pressure 138/78 O2 Sat by Pulse 100 100 Oximetry 08/22/19 08/22/19 08/22/19 15:37 15:38 15:40 Temperature Pulse Rate 84 84 100 H Blood Pressure 137/80 139/75 O2 Sat by Pulse 99 Oximetry 08/22/19 08/22/19 08/22/19 15:42 15:44 15:46 Temperature Pulse Rate 120 H 123 H 160 H Blood Pressure 134/77 129/76 120/70 O2 Sat by Pulse 100 Oximetry 08/22/19 08/22/19 08/22/19 15:47 15:48 15:50 Temperature Pulse Rate 167 H 148 H 146 H Blood Pressure 128/74 126/73 O2 Sat by Pulse 100 Oximetry 08/22/19 08/22/19 08/22/19 15:52 15:54 15:56 Temperature Pulse Rate 111 H 109 H 110 H Blood Pressure 134/82 124/64 119/57 O2 Sat by Pulse 100 Oximetry 08/22/19 08/22/19 08/22/19 15:57 15:58 16:00 Temperature Pulse Rate 89 87 102 H Blood Pressure 120/60 115/59 O2 Sat by Pulse 100 Oximetry 08/22/19 08/22/19 08/22/19 16:02 16:04 16:05 Temperature 97.8 F Pulse Rate 94 H 79 Blood Pressure 118/56 143/64 O2 Sat by Pulse 100 Oximetry 08/22/19 08/22/19 08/22/19 16:06 16:07 16:08 Temperature Pulse Rate 85 107 H 94 H Blood Pressure 123/61 127/65 O2 Sat by Pulse 100 Oximetry 08/22/19 08/22/19 08/22/19 16:12 16:17 16:22 Temperature Pulse Rate 86 82 83 Blood Pressure O2 Sat by Pulse 100 100 100 Oximetry 08/22/19 08/22/19 08/22/19 16:27 16:32 16:37 Temperature Pulse Rate 85 88 83 Blood Pressure O2 Sat by Pulse 100 100 100 Oximetry 08/22/19 08/22/19 08/22/19 16:40 16:42 16:47 Temperature Pulse Rate 82 97 H 88 Blood Pressure 131/66 O2 Sat by Pulse 100 100 Oximetry 08/22/19 08/22/19 08/22/19 16:52 16:57 17:02 Temperature Pulse Rate 84 97 H 82 Blood Pressure O2 Sat by Pulse 100 100 100 Oximetry 08/22/19 08/22/19 08/22/19 17:07 17:09 17:12 Temperature Pulse Rate 102 H 81 88 Blood Pressure 138/63 O2 Sat by Pulse 100 100 Oximetry 08/22/19 08/22/19 08/22/19 17:17 17:22 17:27 Temperature Pulse Rate 84 79 92 H Blood Pressure O2 Sat by Pulse 100 100 100 Oximetry 08/22/19 08/22/19 08/22/19 17:32 17:37 17:38 Temperature Pulse Rate 90 78 87 Blood Pressure 115/62 O2 Sat by Pulse 100 100 Oximetry 08/22/19 08/22/19 08/22/19 17:42 17:47 17:52 Temperature Pulse Rate 75 86 83 Blood Pressure O2 Sat by Pulse 100 100 100 Oximetry 08/22/19 08/22/19 08/22/19 17:57 18:02 18:07 Temperature Pulse Rate 89 105 H 102 H Blood Pressure O2 Sat by Pulse 100 100 100 Oximetry 08/22/19 08/22/19 08/22/19 18:08 18:12 18:17 Temperature Pulse Rate 93 H 81 76 Blood Pressure 120/60 O2 Sat by Pulse 100 100 Oximetry 08/22/19 08/22/19 08/22/19 18:22 18:27 18:32 Temperature Pulse Rate 90 92 H 78 Blood Pressure O2 Sat by Pulse 100 100 100 Oximetry 08/22/19 08/22/19 08/22/19 18:37 18:42 18:47 Temperature Pulse Rate 82 85 75 Blood Pressure O2 Sat by Pulse 100 100 100 Oximetry 08/22/19 08/22/19 08/22/19 18:52 18:57 19:02 Temperature Pulse Rate 79 82 74 Blood Pressure O2 Sat by Pulse 100 100 100 Oximetry 08/22/19 08/22/19 08/22/19 19:07 19:12 19:13 Temperature Pulse Rate 74 77 78 Blood Pressure 127/70 O2 Sat by Pulse 100 100 Oximetry 08/22/19 08/22/19 08/22/19 19:17 19:22 19:27 Temperature Pulse Rate 86 81 83 Blood Pressure O2 Sat by Pulse 100 100 100 Oximetry 08/22/19 08/22/19 08/22/19 19:32 19:37 19:42 Temperature Pulse Rate 87 94 H 80 Blood Pressure O2 Sat by Pulse 100 100 100 Oximetry 08/22/19 08/22/19 08/22/19 19:47 19:52 19:57 Temperature Pulse Rate 70 82 88 Blood Pressure O2 Sat by Pulse 100 100 100 Oximetry 08/22/19 08/22/19 08/22/19 20:02 20:07 20:12 Temperature Pulse Rate 81 87 86 Blood Pressure O2 Sat by Pulse 100 100 100 Oximetry 08/22/19 08/22/19 08/22/19 20:13 20:17 20:22 Temperature Pulse Rate 80 87 91 H Blood Pressure 132/77 O2 Sat by Pulse 100 100 Oximetry 08/22/19 08/22/19 08/22/19 20:27 20:32 20:37 Temperature Pulse Rate 88 87 87 Blood Pressure O2 Sat by Pulse 100 100 100 Oximetry 08/22/19 08/22/19 08/22/19 20:42 20:47 20:52 Temperature Pulse Rate 84 88 89 Blood Pressure O2 Sat by Pulse 100 100 100 Oximetry 08/22/19 08/22/1908/22/19 20:57 21:02 21:07 Temperature Pulse Rate 90 91 H 82 Blood Pressure O2 Sat by Pulse 100 100 100 Oximetry 08/22/19 08/22/19 08/22/19 21:12 21:13 21:17 Temperature Pulse Rate 83 85 91 H Blood Pressure 122/79 O2 Sat by Pulse 100 100 Oximetry 08/22/19 08/22/19 08/22/19 21:22 21:27 21:32 Temperature Pulse Rate 82 81 86 Blood Pressure O2 Sat by Pulse 100 100 100 Oximetry 08/22/19 08/22/19 08/22/19 21:37 21:42 21:47 Temperature Pulse Rate 85 100 H 95 H Blood Pressure O2 Sat by Pulse 100 100 100 Oximetry 08/22/19 08/22/19 08/22/19 21:52 21:57 22:02 Temperature Pulse Rate 87 88 91 H Blood Pressure O2 Sat by Pulse 100 100 100 Oximetry 08/22/19 08/22/19 08/22/19 22:07 22:12 22:17 Temperature Pulse Rate 84 86 89 Blood Pressure 129/80 O2 Sat by Pulse 100 100 100 Oximetry 08/22/19 08/22/19 08/22/19 22:22 22:27 22:32 Temperature Pulse Rate 85 88 92 H Blood Pressure O2 Sat by Pulse 100 100 100 Oximetry 08/22/19 08/22/19 08/22/19 22:37 22:42 22:47 Temperature Pulse Rate 87 84 88 Blood Pressure O2 Sat by Pulse 100 100 100 Oximetry 08/22/19 08/22/19 08/22/19 22:52 22:57 23:02 Temperature Pulse Rate 92 H 84 89 Blood Pressure O2 Sat by Pulse 100 100 100 Oximetry 08/22/19 08/22/19 08/22/19 23:07 23:12 23:17 Temperature Pulse Rate 87 83 95 H Blood Pressure 134/82 O2 Sat by Pulse 100 100 100 Oximetry 08/22/19 08/22/19 08/22/19 23:22 23:27 23:32 Temperature Pulse Rate 74 78 82 Blood Pressure O2 Sat by Pulse 100 100 100 Oximetry 08/22/19 08/22/19 08/22/19 23:37 23:42 23:47 Temperature Pulse Rate 84 82 121 H Blood Pressure O2 Sat by Pulse 100 100 100 Oximetry 08/22/19 08/22/19 08/23/19 23:52 23:57 00:02 Temperature Pulse Rate 85 92 H 84 Blood Pressure O2 Sat by Pulse 100 100 100 Oximetry 08/23/19 08/23/19 08/23/19 00:07 00:12 00:17 Temperature Pulse Rate 73 69 91 H Blood Pressure 128/64 O2 Sat by Pulse 100 100 100 Oximetry 08/23/19 08/23/19 08/23/19 00:22 00:27 00:32 Temperature Pulse Rate 76 69 70 Blood Pressure O2 Sat by Pulse 100 100 100 Oximetry 08/23/19 08/23/19 08/23/19 00:37 00:42 00:47 Temperature Pulse Rate 74 76 88 Blood Pressure O2 Sat by Pulse 100 100 100 Oximetry 08/23/19 08/23/19 08/23/19 00:52 00:57 01:02 Temperature Pulse Rate 74 84 89 Blood Pressure O2 Sat by Pulse 100 100 100 Oximetry 08/23/19 08/23/19 08/23/19 01:07 01:12 01:17 Temperature Pulse Rate 131 H 106 H 113 H Blood Pressure 128/88 O2 Sat by Pulse 100 100 100 Oximetry 08/23/19 08/23/19 08/23/19 01:22 01:27 01:32 Temperature Pulse Rate 107 H 99 H 89 Blood Pressure O2 Sat by Pulse 100 100 100 Oximetry 08/23/19 08/23/19 08/23/19 01:37 01:42 01:47 Temperature Pulse Rate 100 H 103 H 113 H Blood Pressure O2 Sat by Pulse 100 100 100 Oximetry 08/23/19 08/23/19 08/23/19 01:52 01:57 02:02 Temperature Pulse Rate 114 H 98 H 107 H Blood Pressure O2 Sat by Pulse 100 100 100 Oximetry 08/23/19 08/23/19 08/23/19 02:07 02:12 02:17 Temperature Pulse Rate 104 H 97 H 102 H Blood Pressure 145/79 O2 Sat by Pulse 100 100 100 Oximetry 08/23/19 08/23/19 02:22 02:27 Temperature Pulse Rate 101 H 137 H Blood Pressure O2 Sat by Pulse 100 100 Oximetry - Labs Labs: Abnormal Labs 08/22/19 14:20 MCH 27 L Laboratory Results - last 24 hr 08/22/19 08/22/19 14:20 14:20 WBC 10.5 RBC 4.84 Hgb 12.9 Hct 39.7 MCV 82 MCH 27 L MCHC 33 RDW 14.4 Plt Count 227 Blood Type A POSITIVE Antibody Screen Negative
[2019-08-23] MEDS ORDERED: BICITRA ONE (02:38)
[2019-08-23] MEDS ORDERED: REGLAN ONE (02:39)
[2019-08-23] MEDS ORDERED: ANCEF/STERILE WATER 2 GM/20 ML 2 GM/20 ML SYRINGE IV ONE (02:39)
[2019-08-23] MEDS ORDERED: PEPCID IV ONE (02:40)
--- NOTE | 2019-08-23 02:54 | Anesthesia Day of Surgery ---
Anesthesia Day of Surgery - Day of Surgery Patient Examined: Yes Patient H&P Reviewed: Yes Patient is NPO: Yes
[2019-08-23] MEDS ORDERED: ZOFRAN ONE (03:26)
[2019-08-23] MEDS ORDERED: SODIUM BICARBONATE IV ONE (03:26)
[2019-08-23] MEDS ORDERED: XYLOCAINE MPF 2% ONE ×3 (03:26→04:05)
[2019-08-23] MEDS ORDERED: METHERGINE IM ONE ×4 (03:29→03:49)
[2019-08-23] MEDS ORDERED: CYTOTEC ONE (03:49)
[2019-08-23] MEDS ORDERED: CYTOTEC PR ONE (03:50)
[2019-08-23] MEDS ORDERED: HESPAN 500 ML IV ONE (04:05)
[2019-08-23] MEDS ORDERED: TORADOL ONE (04:07)
--- NOTE | 2019-08-23 04:21 | Procedure Note ---
OB Delivery Note - Delivery Date of Delivery: 08/23/19 Surgeon: HODA LORENZANA Estimated blood loss: other (800ml) - Section Preop diagnosis: repeat (failed TOLAC), arrest of descent Postop diagnosis: same section procedure: repeat low transverse Disposition: PACU Complications: uterine atony Narrative: Preoperative diagnosis: IUP at 38+3/7 weeks, Failed TOLAC for failure of descent Postoperative diagnosis: same, uterine atony Procedure: Repeat Low Transverse section via Pfannenstiel incision. Surgeon: Dr Hoda Lorenzana Assist: Scrub Anesthesia: Spinal Epidural Findings: viable male 3677gms and 8,9. Normal uterus,normal tubes and o varies bilaterally Complications:uterine atony( Patient received oxytocin per protocol x1 bag, Methergine 0.3mg x2 doses and Cytotec 100mcg [place]. Drains: Lester to gravity EBL: 800mL IV Fluids: 1500ml Urine Output:25ml Procedure: Patient gave informed consent in OB 2007. All questions and concerns addressed. R/B/C reviewed. She was taken to the OR where excellent epidural anesthesia was confirmed. She was placed in the dorsal supine position with a leftward tilt. She was prepped and draped in a sterile fashion. A time out was verified. An Michelle clamp was used to assure adequate analgesia. A Pfannenstiel skin incision was made, taken down through the underlying fascia sharply and extended laterally with curved Rocha scissors. The superior and inferior aspect of the fascial incision was grasped with Lorena clamps and the rectus muscles dissected off sharply. The abdomen was entered sharply in the midline and extended laterally and inferiorly sharply with good visualization of the underlying structures.A bladder blade was inserted. THe vesicouterine peritoneum was the incisioned in the midline and extended lateraly with the Metzenbaum scissors. A bladder flap was created bluntly. The bladderblade was repositioned. The uterine incision was made sharply with a scalpel, taken down to the amnion and extended inferiorly and superiorly bluntly. The bladder blade was removed. The baby delivered atraumatically, no nuchal cord. Cord clamped and cut and baby handed to waiting machine tool rebuilder staff. Cord blood obtained. An intact placenta with three vessel cord delivered manually. The uterus cleared of all clots and debris. The placenta was meconium stained and will be sent to pathology, The uterus was exteriorized to allow for better visualization. The uterine incision closed with 2layers of 0-Vicryl. The bladder flap reapproximated with 0-Vicryl. The uterus was noted to be atonic. Two doses of methergine 0/3mg were given IV and the second IM in the uterus.The uterus firmed up adequately. No active bleeding noted. The abdomen was irrigated with warm normal saline and the uterus placed back into the abdomen atraumatically. The bladder blade was reinserted and a second look at the uterine incision assured excellent hemostasis. The bladder blade was again removed. The peritoneum was closed with 3-0 Vicryl, the fascia closed with 0-Vicryl in the usual fashion. The underlying structures closed with interrupted suture of O-Vicryl. The skin closed with katherine and a pressure dressing applied. All sponge and needle counts correctx3. Cytotec 1000mcg placed in the rectum at the completion of the procedure. The uterus was again conformed firm at the completion of the procedure. Mom and baby stable to . EBL 800ml. Urine output noted to be bloody and 25ml at the completion of procedure. Suspect urethral trauma with moving patient to bed. Lester bulb repositioned. Will monitor closely. . Kevon CH
--- NOTE | 2019-08-23 04:36 | Post Anesthesia Evaluation ---
- Post Anesthesia Evaluation Patient Participated: Yes Airway Patent: Yes Stable Respiratory Function: Yes Nausea/Vomiting: No Temp > 96.8F: Yes Pain Manageable: Yes Adequeate Hydration: Yes Anesthesia Complications: No Block Receding Appropriately: Yes
[2019-08-23] MEDS ORDERED: LANSINOH TP PRN (05:17)
[2019-08-23] MEDS ORDERED: MORPHINE IV PRN (05:17)
[2019-08-23] MEDS ORDERED: ZOFRAN IV PRN (05:17)
[2019-08-23] MEDS ORDERED: NALOXONE IV PRN (05:17)
[2019-08-23] MEDS ORDERED: NORCO 5/325 PO PRN (05:17)
[2019-08-23] MEDS ORDERED: TUCKS PAD TP PRN (05:17)
[2019-08-23] MEDS ORDERED: TYLENOL PO PRN (05:17)
[2019-08-23] MEDS ORDERED: SODIUM CHLORIDE FLUSH SYRINGE 10 ML IV NR (06:00)
[2019-08-23] MEDS ORDERED: PITOCin/NS 20 UNIT/1000ML DRIP 20 UNITS/1,000 ML BAG IV SCH (06:00)
[2019-08-23] MEDS ORDERED: BOOSTRIX IM ONE ×2 (10:00→19:30)
[2019-08-23] MEDS: TORADOL IV SCH ×3 (12:16→23:15)
[2019-08-23 12:35] LABS: Creatine Kinase MB 8.5 ng/mL (0.0-4.0)
--- NOTE | 2019-08-23 15:33 | Consultation ---
History of Present Illness - Reason for Consult Consult date: 08/23/19 Chest pains - History of Present Illness Patient was seen and examined. Follow-up on current diagnosis. No overnight events reported to me. Patient denies any chest pain, shortness breath, nausea/vomiting or severe headaches. Imaging, nursing note, chart, labs and old chart reviewed. Discussed with patient. PMH: as hpi PSH: Cholecystectomy, x 1 SH: denies tob/etoh/illicit drugs FH: Paternal Aunt with heart failure ROS: Constitutional: denies: fever ENT: denies: throat or neck pain Respiratory: denies: cough, shortness of breath Cardiovascular: +cp Endocrine: denies unexplained weight loss or gain Gastrointestinal: denies: abdominal pain, nausea Genitourinary: denies: dysuria Rectal: denies no incontinence, no bleeding, no itching, no discharge Musculoskeletal: denies swelling, myaglia, muscle weakness Skin: denies: rash Neurological: denies: headache Hematological/Lymphatic: denies: easy bleeding or easy bruising Allergic/Immunologic: no urticaria, no allergic rhinitis, no anaphylaxis Psych: denies sadness or hopelessness, SI/HI Past History Social history: no significant social history Medications and Allergies Allergies Allergy/AdvReac Type Severity Reaction Status Date / Time No Known Allergies Allergy Unverified 08/22/19 13:05 Active Meds: Active Medications Acetaminophen (Tylenol) 650 mg PO Q4H PRN PRN Reason: Fever >100.5/MATHEW Acetaminophen/Hydrocodone Bitart ([place] 5/325) 1 each PO Q6H PRN PRN Reason: Pain, Moderate (4-6) Butorphanol Tartrate (Stadol) 2 mg IV Q2H PRN PRN Reason: Pain , Severe (7-10) Ephedrine Sulfate (Ephedrine Sulfate) 10 mg IV Q2M PRN PRN Reason: Hypotension Lactated Ringer's (Lactated Ringers) 1,000 mls @ 125 mls/hr IV DIRECT HENRIQUE Last Admin: 08/22/19 15:13 Dose: 125 mls/hr Documented by: Fentanyl/Bupivacaine/Sodium Chlor (Fentanyl-Bupiv 2 Mcg/Ml-0.125%) 200 mcg in 100 mls @ 12 mls/hr EPIDURAL TITR HENRIQUE; Protocol Last Admin: 08/22/19 23:04 Dose: 12 mls/hr Documented by: Oxytocin/Sodium Chloride (Pitocin/Ns 20 Unit/1000ml Drip) 20 units in 1,000 mls @ 250 mls/hr IV DIRECT HENRIQUE Ibuprofen (Ibuprofen) 800 mg PO Q6H PRN PRN Reason: Pain, Mild (1-3) Ketorolac Tromethamine (Toradol) 30 mg IV Q6HR HENRIQUE Stop: 08/28/19 11:59 Last Admin: 08/23/19 12:16 Dose: 30 mg Documented by: Mineral Oil (Mineral Oil) 30 ml PO QHS PRN PRN Reason: Constipation Morphine Sulfate (Morphine) 4 mg IV Q4H PRN PRN Reason: Pain , Severe (7-10) Last Admin: 08/23/19 09:17 Dose: 4 mg Documented by: Multi-Ingredient Ointment (Lansinoh) 1 applic TP PRN PRN PRN Reason: dryness/cracking Nalbuphine HCl (Nubain) 10 mg IV Q2H PRN PRN Reason: Pain, Moderate (4-6) Naloxone HCl (Narcan 2 Mg/2 Ml) 0.2 mg IV Q5M PRN PRN Reason: Respiratory sedation Naloxone HCl (Narcan 0.4 Mg/1 Ml) 0.1 mg IV Q2MIN PRN PRN Reason: Res Rate </= 8 or 02 SAT < 92% Ondansetron HCl (Zofran) 4 mg IV Q8H PRN PRN Reason: Nausea And Vomiting Promethazine HCl (Phenergan) 25 mg TN Q6H PRN PRN Reason: N/V if unable to take po Sodium Chloride (Sodium Chloride Flush Syringe 10 Ml) 10 ml IV PRN NR Stop: 08/24/19 05:59 Terbutaline Sulfate (Brethine) 0.25 mg SUB-Q ONCE PRN PRN Reason: Hyperstimulation/Hypertonicity Terbutaline Sulfate (Brethine) 0.25 mg IVP ONCE PRN PRN Reason: Hyperstimulation/Hypertonicity Witch Meena/Glycerin (Tucks Pad) 1 each TP PRN PRN PRN Reason: Hemorrhoids/cleansing/soothing Exam - Physical Exam Narrative exam: Gen: WDWN, NAD, Awake, Alert, Orientated HEENT: NCAT, EOMI, PERRL, OP Clear Neck: supple, no adenopathy, no thyromegaly, no JVD CVS/Heart: RRR, normal S1S2, pulses present bilaterally Chest/Lungs: CTA B, Symmetrical chest expansion, good air entry bilaterally GI/Abdomen: soft, diffuse tenderness, surg dressing intact, +bowel sounds, no rebound /Bladder: no suprapubic tenderness, no CVA or paraspinal tenderness Extermity/Skin: no c/c/e, no obvious rash MSK: FROM x 4 Neuro: CN 2-12 grossly intact, no new focal deficits Psych: calm - Constitutional Vitals: Temp Pulse Resp BP Pulse Ox 97.9 F 81 20 136/81 98 08/23/19 11:25 08/23/19 11:25 08/23/19 11:25 08/23/19 11:25 08/23/19 11:25 Results - Labs CBC & Chem 7: 08/22/19 14:20 Labs: Abnormal lab results 08/23/19 Range/Units 11:45 Total Creatine Kinase 325 H (30-135) units/L CK-MB (CK-2) 8.5 H (0.0-4.0) ng/mL Assessment and Plan Patient is a 34 yo [place] speaking woman (sister in Law Ernestina was risk analyst at bedside) with a history of who presented to [facility] ED with contractions. She underwent this morning and had pain after surgery. She was given 4 mg IV morphine x 1 for pain and shortly after she developed left sided sharp moderately intense transient non-radiating chest pains. Hospitalists were consulted for chest pains. So far, Cardiac enzymes unremarkable for ische paul, CK elevated due to recent surgery. Chest pains, atypical: serial cardiac enzymes with troponin and EKG. d/c IV morphine today because so much Anesthesia and other medications interactions could cause this chest pains, ok to resume tomorrow s/p : per nat instructor Chest pains was transient and isolated, if re-occurs, please Consult Cardiology computational physicist. I will sign off
[2019-08-23 18:24] LABS: Hematocrit 30.2 % (30.3-42.9); Hemoglobin 9.8 gm/dl (10.1-14.3)
[2019-08-24] MEDS: TORADOL IV SCH (05:57)
[2019-08-24] MEDS ORDERED: NORCO 5/325 PO PRN (10:30)
--- NOTE | 2019-08-24 10:40 | Progress Note ---
Assessment and Plan A: POD #1 Asymptomatic Anemia s/p: Chest pain P: Follow Routine PostOp Orders FeSo4 325mg PO BID Subjective - Subjective Date of service: 08/24/19 Principal diagnosis: Induction of labor Patient reports: appetite normal, voiding normally, pain well controlled, flatus, ambulating normally, other (Denies all chest pain today; states she feels like the chest pains yesterday were related to anxiety) Elizabeth: doing well, bottle feeding (and ) Objective - Vital Signs Latest vital signs: Vital Signs Temp Pulse Resp BP BP Pulse Ox 08/24/19 08:33 88 98 08/24/19 08:32 88 15 105/61 98 08/24/19 08:30 97.8 F 08/24/19 00:00 98.6 F 66 18 104/78 08/23/19 19:30 98.7 F 69 18 114/78 08/23/19 15:07 97.9 F 83 20 120/83 99 08/23/19 11:25 97.9 F 81 20 136/81 98 Intake and Output 08/23/19 08/24/19 08/24/19 22:59 06:59 14:59 Intake Total 780 Output Total 1200 400 Balance -420 -400 Intake: Oral 480 Intake, Free Water 300 Output: Urine 1200 400 Indwelling Catheter 100 Void 1100 400 Other: Total, Intake Amount 480 Total, Output Amount 600 400 # Voids Void 1 - Exam Breasts: Present: normal Cardiovascular: Present: Regular rate Lungs: Present: Clear to auscultation, Normal air movement Abdomen: Present: normal appearance, soft, normal bowel sounds Uterus: Present: normal, firm, fundal height below umbilicus Extremities: Present: normal Incision: Present: normal, dry, dressed - Labs Labs: Abnormal lab results 08/23/19 08/23/19 Range/Units 11:45 18:09 Hgb 9.8 L D (10.1-14.3) gm/dl Hct 30.2 L D (30.3-42.9) % Total Creatine Kinase 325 H (30-135) units/L CK-MB (CK-2) 8.5 H (0.0-4.0) ng/mL
[2019-08-24] MEDS: IBUPROFEN PO PRN ×2 (12:48→18:20)
[2019-08-24] MEDS ORDERED: MILK OF MAGNESIA PO PRN (19:56)
[2019-08-24] MEDS ORDERED: MYLICON PO PRN (19:56)
[2019-08-25] MEDS: FEOSOL PO SCH ×2 (00:18→11:51)
[2019-08-25] MEDS: IBUPROFEN PO PRN ×3 (00:18→11:51)
[2019-08-25] MEDS: TORADOL IV SCH (06:08)
[2019-08-25 09:37] VITALS: BP 124/81
--- NOTE | 2019-08-25 10:12 | Event Note ---
Date: 08/25/19 Brief visit. She denies anymore chest pains, will sign off.
--- NOTE | 2019-08-25 10:54 | Progress Note ---
Assessment and Plan - Patient Problems (1) S/P repeat low transverse Current Visit: Yes Status: Acute Plan to address problem: POD 2 - stable Continue routine postop orders Discharge to home today Follow-up at [facility] as needed or in 1 week for incision check (2) Anemia due to blood loss, acute Current Visit: Yes Status: Acute Plan to address problem: Currently asymptomatic Continue iron therapy Subjective - Subjective Date of service: 08/25/19 Principal diagnosis: POD #2; s/p Repeat LTCS Interval history: see H&P, OB Progress Notes, OB Delivery Procedure Note, Consult Note, PP/BUILDING SUPERVISOR Progress Note and Event Note Patient reports: appetite normal, voiding normally, pain well controlled, flatus, bowel movement, ambulating normally, no dizzy ambulation [place]: doing well, nursing well Objective - Vital Signs Latest vital signs: Vital Signs Temp Pulse Resp BP BP Pulse Ox 08/25/19 08:19 97.9 F 93 H 16 124/81 98 08/25/19 00:00 98.7 F 63 18 105/75 08/24/19 16:21 98.1 F 88 18 126/80 98 - Exam Cardiovascular: Present: Regular rate Lungs: Present: Clear to auscultation Abdomen: Present: normal appearance, soft Vulva: both: normal Uterus: Present: normal, firm, fundal height below umbilicus Extremities: Present: normal Incision: Present: normal, dry, intact, other (steri strips in place) Comments: small lochia
--- NOTE | 2019-08-25 11:04 | Discharge Summary ---
Providers - Providers Date of Admission: 08/22/19 14:16 Date of discharge: 08/25/19 Attending physician: HODA LORENZANA MD Primary care physician: HODA LORENZANA MD Hospitalization Reason for admission: active labor, IUP at term Delivery: Procedure: repeat low transverse Episiotomy: none Laceration: none Incision: normal, dry, intact, other (steri strips in place) Other procedures: none complications: none Discharge diagnosis: IUP at term delivered baby: male Hospital course: Uncomplicated Condition at discharge: Stable Disposition: DC-01 TO HOME OR SELFCARE - Discharge Diagnoses (1) S/P repeat low transverse Status: Acute (2) Anemia due to blood loss, acute Status: Acute Comment: Asymptomatic Continue iron therapy Eat iron-rich foods Plan - Discharge Medications Prescriptions: Ferrous Sulfate [Feosol 325 MG tab] 325 mg PO BID #60 tablet Ibuprofen [Motrin 800 MG tab] 800 mg PO Q6H PRN #30 tablet PRN Reason: Pain, Mild (1-3) - Provider Discharge Summary Activity: routine, no sex for 6 weeks, no heavy lifting 4 weeks, no strenuous exercise Diet: routine Instructions: routine Additional instructions: [] Smoking cessation referral if applicable(refer to patient education folder for contact #) [] Refer to [facility]'s [facility] Booklet Call your doctor immediately for: * Fever > 100.5 * Heavy vaginal bleeding ( >1 pad per hour) * Severe persistent headache * Shortness of breath * Reddened, hot, painful area to leg or breast * Drainage or odor from incision. * Keep incision clean and dry at all times and follow doctor's instructions regarding bathing/showering - Follow up plan Follow up: HODA LORENZANA MD [Primary Care Provider] - 7 Days (Follow up at [facility] as needed or in 1 week for incision check)
== END 2019-08-25 17:25 | disposition home or self-care (01) | DRG 787 ==
LOC: TRG 12:15 → LD 14:16 → OB 08-23 06:15
PROVIDERS: ADMIT Obstetrics & Gynecology; ATTEND Obstetrics & Gynecology
PROC: 10H07YZ Insertion of Other Device into Products of Conception, Via Natural or Artificial Opening (ICD-10-PCS; 2019-08-22)
PROC: 10907ZC Drainage of Amniotic Fluid, Therapeutic from Products of Conception, Via Natural or Artificial Opening (ICD-10-PCS; 2019-08-22)
PROC: 3E033VJ Introduction of Other Hormone into Peripheral Vein, Percutaneous Approach (ICD-10-PCS; 2019-08-22)
PROC: 10D00Z1 Extraction of Products of Conception, Low, Open Approach (ICD-10-PCS; principal; 2019-08-23)
PROC: 3E0234Z Introduction of Serum, Toxoid and Vaccine into Muscle, Percutaneous Approach (ICD-10-PCS; 2019-08-23)
DX: O99.824 Streptococcus B carrier state complicating childbirth (principal); D62 Acute posthemorrhagic anemia; O77.0 Labor and delivery complicated by meconium in amniotic fluid; Z3A.38 38 weeks gestation of pregnancy; Z37.0 Single live birth; Z23 Encounter for immunization; Z90.49 Acquired absence of other specified parts of digestive tract; Z82.49 Family history of ischemic heart disease and other diseases of the circulatory system; O99.89 Other specified diseases and conditions complicating pregnancy, childbirth and the puerperium; O90.81 Anemia of the puerperium; R07.89 Other chest pain; O76 Abnormality in fetal heart rate and rhythm complicating labor and delivery; O62.1 Secondary uterine inertia; O66.41 Failed attempted vaginal birth after previous cesarean delivery; O61.0 Failed medical induction of labor
CPT/HCPCS: 36415; 82550; 82553; 84484; 85014; 85018; 85027; 86592; 86850; 86900; 86901; 90471; 90715; 93005; 93010; G0378; J0290; J0690; J1885; J2210; J2270; J2405; J2590; J2765; J7120

== ENCOUNTER 2020-04-19 21:34 | Emergency (ER) | payer MEDICAID ==
[2020-04-19 21:55] VITALS: BP 149/99
[2020-04-20] MEDS ORDERED: LIDOCAINE-MPF (1%) 10 MG/1 ML VIAL 5 ML INFILTRATI ONE (01:07)
[2020-04-20] MEDS ORDERED: AMOXICILLIN/K CLAV 875/125MG TAB PO ONE (01:22)
--- NOTE | 2020-04-20 01:24 | Emergency Department Report ---
HPI - General Chief Complaint: Animal Bite Time Seen by Provider: 04/20/20 00:54 - HPI HPI: 35-year-old female presents to the emergency department with a complaint of a dog bite to the right arm prior to presentation. She has some pain in the right hand and has 2 lacerations just below the right elbow. It is her friend and neighbor's dog and apparently it is up-to-date with all of its vaccinations. She is unsure of her last tetanus vaccination but she appears to have received 1 here in August 2019. She has not taken anything for symptoms prior to presentation today. ED Past Medical Hx - Past Medical History Previous Medical History?: No Hx Hypertension: No Hx Congestive Heart Failure: No Hx Diabetes: No Hx Deep Vein Thrombosis: No Hx Renal Disease: No Hx Sickle Cell Disease: No Hx Seizures: No Hx Asthma: No Hx COPD: No Hx HIV: No - Surgical History Past Surgical History?: Yes Additional Surgical History: C-Sec - Social History Smoking Status: Never Smoker Substance Use Type: None - Medications Home Medications: Home Medications Medication Instructions Recorded Confirmed Last Taken Type Ferrous Sulfate [Feosol 325 MG tab] 325 mg PO BID #60 tablet 08/25/19 Unknown Rx oxyCODONE /ACETAMINOPHEN [Percocet 1 tab PO Q4HR #20 tab 08/25/19 Unknown Rx 5/325] Amoxicillin/Potassium Clav 1 each PO BID #14 tablet 04/20/20 Unknown Rx [Augmentin 875-125 Tablet] Ibuprofen [Motrin 800 MG tab] 800 mg PO Q6H PRN #20 tablet 04/20/20 Unknown Rx ED Review of Systems ROS: Stated complaint: DOG BITE Other details as noted in HPI Comment: All other systems reviewed and negative Constitutional: denies: chills, fever Musculoskeletal: arthralgia, myalgia Skin: other (lacerations). denies: rash Neurological: denies: numbness, paresthesias Physical Exam - Physical Exam Vital Signs: Vital Signs 04/19/20 21:52 Temperature 98.6 F Pulse Rate 95 H Respiratory 20 Rate Blood Pressure 149/99 O2 Sat by Pulse 100 Oximetry Physical Exam: GENERAL: The patient is well-developed well-nourished. HENT: Normocephalic. Atraumatic. Patient has moist mucous membranes. EYES: Extraocular motions are intact. NECK: Supple. Trachea is midline. SKIN: Skin is warm and dry. There is a 2 cm laceration to the proximal right forearm that is superficial, linear. There is a 1 cm laceration just below this it is also superficial and linear. NEURO: The patient is awake, alert, and oriented. The patient is cooperative. The patient has no focal neurologic deficits. Normal speech. MUSCULOSKELETAL: There is tenderness to palpation to the proximal right forearm where the patient has 2 small lacerations, as well as tenderness to palpation to the dorsal right hand without any obvious deformities. Radial pulse +2/4 and capillary refill less than 2 seconds to the affected right upper extremity. ED Course Vital Signs 04/19/20 21:52 Temperature 98.6 F Pulse Rate 95 H Respiratory 20 Rate Blood Pressure 149/99 O2 Sat by Pulse 100 Oximetry - Laceration /Wound Repair Right Arm Wound Location: upper extremity (Right arm just distal to the elbow) Wound Length (cm): 2 Wound's Depth, Shape: superficial, linear Wound Explored: no foreign body removed Irrigated w/ Saline (ccs): 50 Anesthesia: 1% Lidocaine Volume Anesthetic (ccs): 3 Wound Repaired With: sutures Suture Size/Type: 5:0, 4:0 Number of Sutures: 3 Layer Closure?: No Sterile Dressing Applied?: Yes ED Medical Decision Making - Radiology Data Radiology results: image reviewed interpreted by me: X-ray of the right hand and elbow do not show any fracture, dislocation, or any acute process. - Medical Decision Making This patient presents after being bitten by a neighbor's dog causing 2 small lacerations to the proximal right forearm. The patient also seems to have some pain in the middle of her right hand but there is no obvious deformity. Radial pulse +2/4 and capillary refill is less than 2 seconds and the patient appears neurovascularly intact. X-rays were done of the right hand and the right elbow and there is no sign of any fracture, dislocation, or any foreign body. The wounds were cleaned out with sterile saline. 3 simple interrupted sutures were placed in the larger laceration to close the gap but not completely approximate the wound edges so that there is some room if the patient were to develop a fever secondary to the dog bite. However she has been placed on Augmentin and was given the first dose here in the emergency department. The wounds were cleaned and covered and the patient has been placed in a splint. She has been given a referral for a local orthopedist. She will return to the emergency department with any worsening of her symptoms or any acute distress. Critical Care Time: No Critical care attestation.: If time is entered above; I have spent that time in minutes in the direct care of this critically ill patient, excluding procedure time. ED Disposition Clinical Impression: Laceration, Right hand pain Dog bite of arm Qualifiers: Encounter type: initial encounter Laterality: right Qualified Code(s): S41.151A - Open bite of right upper arm, initial encounter; W54.0XXA - Bitten by dog, initial encounter Disposition: TO HOME OR SELFCARE Is pt being admited?: No Condition: Stable Instructions: Animal Bite (ED), Suture Care (ED), Laceration (ED) Additional Instructions: Coloqu 3 suturas en la laceracin para cerrar la laceracin, matheus me asegur de no cerrarla por completo en matthieu de que desarrolle jayant infeccin. Las suturas debern retirarse en 7 wiggins. Sin embargo, deber ser visto de inmediato con cualquier signo o sntoma de infeccin, shira aumento de la hinchazn, aumento del dolor, desarrollo de enrojecimiento circundante, desarrollo de fiebre o secrecin de pus. Las suturas pueden retirarse en jayant oficina de atencin primaria, en la atencin de urgencia o en el departamento de emergencias. [place] los antibiticos segn lo prescrito. Regrese al departamento de emergencias con cualquier empeoramiento de vu sntomas o cualquier angustia aguda. Le he dado jayant referencia para un ortopedista local, el Dr. Nassar, para que chanda un seguimiento de coles dolor de arely y brazos y la mordedura / laceracin del francia. Prescriptions: Amoxicillin/Potassium Clav [Augmentin 875-125 Tablet] 1 each PO BID #14 tablet Ibuprofen [Motrin 800 MG tab] 800 mg PO Q6H PRN #20 tablet PRN Reason: Pain , Severe (7-10) Referrals: PRIMARY CARE, [Primary Care Provider] - 3-5 Days KAROLINE NASSAR MD [Staff Physician] - 3-5 Days Time of Disposition: 01:51 Print Language: SERBIAN
--- NOTE | 2020-04-20 01:42 | XRay Report ---
RIGHT HAND 3 VIEWS INDICATION / CLINICAL INFORMATION: dog bite. COMPARISON: None available. FINDINGS: No fracture, dislocation or soft tissue swelling is seen within the right hand. No subcutaneous soft tissue gas or radiopaque foreign body is visualized Signer Name: Riki Leary MD Signed: 04/20/2020 1:38 AM Workstation Name: [id number]
--- NOTE | 2020-04-20 01:43 | XRay Report ---
. RIGHT ELBOW 3 VIEWS INDICATION / CLINICAL INFORMATION: dog bite. COMPARISON: None available. FINDINGS: There is a small laceration along the radial aspect of proximal forearm. No fracture, dislocation or radiopaque foreign body is visualized Signer Name: Riki Leary MD Signed: 04/20/2020 1:39 AM Workstation Name: [id number]
== END 2020-04-20 02:20 | disposition home or self-care (01) ==
LOC: ED 21:34
DX: S41.151A Open bite of right upper arm, initial encounter (principal); S61.411A Laceration without foreign body of right hand, initial encounter; Z79.899 Other long term (current) drug therapy; W54.0XXA Bitten by dog, initial encounter; Y93.89 Activity, other specified; Y92.89 Other specified places as the place of occurrence of the external cause; Y99.8 Other external cause status